=== PATIENT | male | born 1945 | race Caucasian/White ===

== ENCOUNTER 2017-02-17 20:02 | Inpatient (IN) | payer MEDICARE ==
[2017-02-18] MEDS ORDERED: HEPARIN SODIUM,PORCINE 5,000 UNIT/ML 1 ML VIAL IV PRN (01:43)
[2017-02-18] MEDS ORDERED: IPRATROPIUM-ALBUTEROL 3 ML NEB INHALATION PRN (01:49)
[2017-02-18] MEDS: HEPARIN SODIUM,PORCINE/D5W PMX 25,000 UNIT in DEXTROSE/WATER 1 500ML.BAG IV SCH (02:47)
[2017-02-18] MEDS: methylPREDNISolone SOD SUCCI 40 MG/ML 1 ML VIAL IV SCH ×2 (02:48→09:57)
[2017-02-18] MEDS: PANTOPRAZOLE 40 MG/10 ML VIAL IVP SCH ×2 (02:48→09:55)
[2017-02-18 05:08] VITALS: BMI 23.6
[2017-02-18 05:40] LABS: Glucose,Whole Blood 192 mg/dL (75-99)
[2017-02-18 06:26] LABS: Basophils % (A) 0 %; CH 35.2; CHCM 34.2; Eosinophils # (A) 0.1 k/uL (0-0.7); Eosinophils % (A) 1 %; HCT 38.1 % (39.0-53.0); HGB 13.3 gm/dL (13.0-17.5); Luc # (Auto) 0.11; Luc % (Auto) 2; Lymphocytes # (A) 0.5 k/uL (1.0-4.8); Lymphocytes % (A) 10 %; MCH 36.1 pg (25.0-35.0); MCHC 34.9 g/dL (31.0-37.0); MCV 103.2 fL (80.0-100.0); Macrocytosis Slight; Mean Platelet Volume 7.1; Monocytes # (A) 0.1 k/uL (0-1.0); Monocytes % (A) 2 %; Neutrophils # (A) 4.1 k/uL (1.3-7.7); Neutrophils % (A) 84 %; RBC 3.69 m/uL (4.30-5.90); WBC 4.9 k/uL (3.8-10.6); WBC (Perox) 5.29
[2017-02-18 06:43] LABS: Anion Gap 11 mmol/L; Blood Urea Nitrogen 20 mg/dL (9-20); Calcium 8.6 mg/dL (8.4-10.2); Carbon Dioxide 24 mmol/L (22-30); Chloride 100 mmol/L (98-107); Glucose 188 mg/dL (74-99); Magnesium 2.1 mg/dL (1.6-2.3); Non-African American GFR(MDRD) >60 (>60 ml/min/1.73 sqM); Phosphorous 2.8 mg/dL (2.5-4.5); Potassium 4.5 mmol/L (3.5-5.1); Sodium 135 mmol/L (137-145)
[2017-02-18] MEDS: INSULIN LISPRO (humaLOG) 300 UNIT/3 ML VIAL SQ SCH ×5 (06:58→21:54)
[2017-02-18] MEDS: metFORMIN 500 MG TAB PO SCH (06:58)
[2017-02-18] MEDS: DONEPEZIL 10 MG TAB PO SCH ×2 (06:58→21:52)
[2017-02-18] MEDS: FERROUS SULFATE 325 MG TAB PO SCH ×2 (06:58→17:37)
--- NOTE | 2017-02-18 07:47 | XR ---
EXAMINATION TYPE: XR chest 2V DATE OF EXAM: 02/18/2017 COMPARISON: Prior chest x-ray 07/09/2016 HISTORY: Pleural effusion TECHNIQUE: Frontal and lateral views of the chest are obtained. FINDINGS: Similar findings to prior exam. Aortic stent graft is in place. Patient is post median moe rnotomy and the heart remains enlarged. There is blunting of the costophrenic angles. No evident pneu mothorax. Patient is rotated. There are overlying cardiac leads. IMPRESSION: Bilateral pleural effusions and associated atelectasis, cardiomegaly. Postprocedural sahil nges.
[2017-02-18] MEDS: IPRATROPIUM-ALBUTEROL 3 ML NEB INHALATION SCH ×4 (08:25→19:02)
[2017-02-18] MEDS: SYMBICORT 160-4.5 MCG INHALER INHALATION SCH ×2 (08:26→19:02)
[2017-02-18 08:50] LABS: Hemoglobin A1C 7.3 % (4.2-6.1)
[2017-02-18] MEDS ORDERED: AZITHROMYCIN 500 MG in SODIUM CHLORIDE 0.9% 250 ML IVPB SCH (09:00)
[2017-02-18] MEDS: PRIMIDONE 50 MG TAB PO SCH ×2 (09:56→17:39)
[2017-02-18] MEDS: ESCITALOPRAM 20 MG TAB PO SCH (09:56)
[2017-02-18] MEDS: PROPRANOLOL 20 MG TAB PO SCH ×2 (09:56→21:54)
[2017-02-18] MEDS: SPIRONOLACTONE 25 MG TAB PO SCH (09:56)
[2017-02-18] MEDS: FUROSEMIDE 10 MG/ML 4 ML VIAL IV SCH ×2 (09:56→21:52)
[2017-02-18] MEDS: CARBIDOPA-LEVODOPA 25-100 MG 1 EACH TAB PO SCH ×3 (09:56→21:55)
[2017-02-18] MEDS: DILTIAZEM CD 240 MG CAP.ER.24H PO SCH (09:56)
[2017-02-18] MEDS: DOCUSATE 100 MG CAP PO SCH (09:57)
--- NOTE | 2017-02-18 11:05 | ECHOF ---
Referral Reason:LV function MEASUREMENTS -------- HEIGHT: 152.4 cm WEIGHT: 74.4 kg BP: 132/70 IVSd: 1.3 cm (0.6 - 1.1) LVIDd: 5.0 cm (3.9 - 5.3) LVPWd: 1.2 cm (0.6 - 1.1) IVSs: 1.6 cm LVIDs: 3.6 cm LVPWs: 1.6 cm LA Diam: 3.8 cm (2.7 - 3.8) LAESV Index (A-L): 64.13 ml/m Ao Diam: 5.7 cm (2.0 - 3.7) AV Cusp: 1.8 cm (1.5 - 2.6) LA Diam: 2.6 cm (2.7 - 3.8) MV EXCURSION: 19.436 mm (> 18.000) MV EF SLOPE: 130 mm/s (70 - 150) EPSS: 1.2 cm MV E Jelani: 0.68 m/s MV DecT: 184 ms MV A Jelani: 0.27 m/s MV E/A Ratio: 2.56 RAP: 5.00 mmHg RVSP: 22.89 mmHg FINDINGS -------- Undetermined rhythm. This was a technically adequate study. There is mild concentric left ventricular hypertrophy. Overall left ventricular systolic function is low-normal with, an EF between 50 - 55 %. The right ventricle is normal in size. LA is severely dilated >40 ml/m2 The right atrial size is normal. There is mild aortic valve sclerosis. There is [id number] aortic regurgitation. Mild mitral annular calcification present. Mild mitral regurgitation is present. Mild tricuspid regurgitation present. There is no evidence of pulmonary hypertension. The right ventricular systolic pressure, as measured by Doppler, is 22.89mmHg. There is no pulmonic regurgitation present. Aortic Root is Moderately dilated and measures 5.7cm There is no pericardial effusion. CONCLUSIONS -------- 1. There is mild concentric left ventricular hypertrophy. 2. There is no pulmonic regurgitation present. 3. Aortic Root is Moderately dilated and measures 5.7cm 4. There is no pericardial effusion. 5. Overall left ventricular systolic function is low-normal with, an EF between 50 - 55 %. 6. LA is severely dilated >40 ml/m2 7. There is mild aortic valve sclerosis. 8. Mild mitral annular calcification present. 9. Mild mitral regurgitation is present. 10. Mild tricuspid regurgitation present. 11. There is no evidence of pulmonary hypertension. 12. The right ventricular systolic pressure, as measured by Doppler, is 22.89mmHg. BEHAVIORAL GENETICIST: Elizabeth Crenshaw RDCS
[2017-02-18] MEDS: MULTIVITAMINS, THERA 1 EACH TAB PO SCH (11:32)
[2017-02-18 11:48] LABS: Glucose,Whole Blood 325 mg/dL (75-99)
--- NOTE | 2017-02-18 12:54 | P.CRDCN ---
History of Present Illness Consult date: 02/18/17 Requesting physician: Lexus Jones Reason for Consult (text): Persistent cough and mental status changes Chief complaint: Persistent cough and mental status changes History of present illness: This is a 71-year-old gentleman who follows with Dr. Guzman in the office. He has a known history of coronary artery disease with prior bypass surgery, history of aascending aortic repair, chronic persistent atrial fibrillation, rheumatoid arthritis, diabetes, hypertension, hyperlipidemia, Parkinson's and mild dementia. Presented to [facility] with symptoms of persistent cough, productive, he also states that he's been getting fever and chills at home over the past one week or so. According to the , he's also been having worsening in mental status changes. Patient was seen at [facility] was initiated on IV antibiotics, CAT scan of the brain was also performed which did not reveal any evidence of acute cortical CVA. Because of the atrial fibrillation and worsening mental status changes the patient was transferred here to [facility]. Chest x-ray performed at [place] revealed small bilateral pleural effusions right basilar atelectasis. CTA of the chest performed at [place] revealed a loculated fluid collection in the right lung base with overlying airspace disease suggesting pneumonia. Patient was initiated on IV antibiotics and transferred here. White blood cell count 5.1, hemoglobin 13.4, platelet count 105, BNP 2300, potassium 4.2, BUN 21, creatinine 1.2. Troponin 0.017, CRP 4.5 INR 1.7. Patient is currently on IV heparin. Continues to have productive cough. Blood pressure 122/90, heart rate in the 70s to 90s. Hemoglobin 13.3, platelet count 102, potassium 4.5, BUN 20, creatinine 0.9. Magnesium level is 2.1. Chest x-ray performed on arrival here reveals bilateral pleural effusions. Echocardiogram with Doppler study was performed which reveals an ejection fraction of 50-55%. Past Medical History Past Medical History: Atrial Fibrillation, Cancer, Heart Failure, Dementia, Diabetes Mellitus, GI Bleed, Hyperlipidemia, Hypertension, Memory Impairment, Neurologic Disorder, Prostate Disorder, Renal Disease, Rheumatoid Arthritis (RA) Additional Past Medical History / Comment(s): PARKINSON'S. HX SKIN CA. KIDNEY STONES, ANEMIA, History of Any Multi-Drug Resistant Organisms: None Reported Past Surgical History: Appendectomy, Cholecystectomy, Coronary Bypass/CABG, Hernia Repair, Orthopedic Surgery Additional Past Surgical History / Comment(s): KIDNEY STONE REMOVAL. AORTIC ANEURYSM REPAIRED,AORTA- STENT PLACED. TRIPLE CABG, BILATERAL CATARACT. LEFT KNEE arthroscopy, blepharoplasty both eyes Past Anesthesia/Blood Transfusion Reactions: No Reported Reaction Past Psychological History: Anxiety, Depression Smoking Status: Unknown if ever smoked Past Alcohol Use History: None Reported Past Drug Use History: None Reported - Past Family History Mother Family Medical History: No Reported History Father Family Medical History: No Reported History Medications and Allergies Home Medications Medication Instructions Recorded Confirmed Type Calcium Citrate/Vitamin D3 1 tab PO BID 03/29/14 02/18/17 History [Calcium Citrate - Vit D3 Tab] Magnesium Gluconate [Magonate] 500 mg PO DAILY 03/29/14 02/18/17 History Multivitamin [Men's Multi-Vitamin] 1 tab PO DAILY@1200 03/29/14 02/18/17 History Simvastatin [Zocor] 40 mg PO HS 04/27/14 02/18/17 History Spironolactone 12.5 mg PO DAILY 04/10/15 02/18/17 History Escitalopram [Lexapro] 20 mg PO DAILY 05/07/15 02/18/17 History Aspirin EC [Ecotrin Low Dose] 81 mg PO HS 06/01/16 02/18/17 History Donepezil [Aricept] 10 mg PO HS 06/01/16 02/18/17 History Furosemide [Lasix] 20 mg PO DAILY 06/01/16 02/18/17 History Primidone [Mysoline] 50 mg PO TID 06/01/16 02/18/17 History predniSONE 10 mg PO DAILY 06/01/16 02/18/17 History traZODone HCL 50 mg PO HS 06/01/16 02/18/17 History Albuterol Sulfate [Ventolin Hfa] 1 puff INHALATION RT-TID PRN 02/18/17 02/18/17 History Carbidopa-Levodopa 25-100 mg 1 tab PO TID 02/18/17 02/18/17 History [Sinemet 25-100] Diltiazem HCl [Diltiazem ER] 240 mg PO DAILY 02/18/17 02/18/17 History Docusate Extra Strength 250 mg PO HS 02/18/17 02/18/17 History Ferrous Sulfate [Feosol] 325 mg PO BID 02/18/17 02/18/17 History Propranolol [Inderal] 20 mg PO BID 02/18/17 02/18/17 History Thiamine [Vitamin B-1] 250 mg PO DAILY@1200 02/18/17 02/18/17 History metFORMIN HCL [Glucophage] 500 mg PO DAILY 02/18/17 02/18/17 History Allergies Allergy/AdvReac Type Severity Reaction Status Date / Time nitroglycerin AdvReac EXTREME Verified 07/09/16 09:43 DROP IN BP Physical Exam Vitals: Vital Signs Temp Pulse Pulse Resp BP Pulse Ox 02/18/17 12:11 96 02/18/17 12:00 97.0 F L 84 18 123/76 95 02/18/17 11:59 92 02/18/17 08:40 96 02/18/17 08:25 96 02/18/17 08:00 97.0 F L 96 18 122/92 96 02/18/17 04:00 98.4 F 74 18 132/70 91 L 02/18/17 01:35 98.0 F 72 18 118/67 95 Intake and Output 02/17/17 02/18/17 02/18/17 22:59 06:59 14:59 Intake Total 71.6 164.382 Output Total 225 Balance -153.4 164.382 Intake: IV 71.6 Heparin Sodium,Porcine/ 71.6 D5w Pmx 25,000 unit In Dextrose/Water 1 500ml. bag @ 12 UNITS/KG/HR 17.9 mls/hr IV .Q24H [facility] Rx#: [id number] Intake, IV Titration 164.382 Amount Heparin Sodium,Porcine/ 164.382 D5w Pmx 25,000 unit In Dextrose/Water 1 500ml. bag @ 12 UNITS/KG/HR 17.9 mls/hr IV .Q24H [facility] Rx#: [id number] Oral 0 Output: Urine 225 Other: Voiding Method Urinal Urinal Diaper Diaper # Voids 1 Weight 74.7 kg 74.7 kg Patient Weight 02/19/17 06:59 Weight 74.7 kg PHYSICAL EXAMINATION: HEENT: Head is atraumatic, normocephalic. Pupils equal, round. Neck is supple. There is no elevated jugular venous pressure. HEART EXAMINATION: S1 and S2 irregularly irregular systolic murmur is heard. CHEST EXAMINATION: Reveal scattered coarse rhonchi throughout. ABDOMEN: Soft, nontender. Bowel sounds are heard. No organomegaly noted. EXTREMITIES: 1+ peripheral pulses with no evidence of peripheral edema and no calf tenderness noted. NEUROLOGIC patient is awake, alert and oriented -3. . Results 02/18/17 05:55 02/18/17 05:55 Coagulation 02/18/17 Range/Units 05:55 APTT 38.3 H (22.0-30.0) sec CBC 02/18/17 Range/Units 05:55 WBC 4.9 (3.8-10.6) k/uL RBC 3.69 L (4.30-5.90) m/uL Hgb 13.3 (13.0-17.5) gm/dL Hct 38.1 L (39.0-53.0) % Plt Count 102 L (150-450) k/uL Comprehensive Metabolic Panel 02/18/17 Range/Units 05:55 Sodium 135 L (137-145) mmol/L Potassium 4.5 (3.5-5.1) mmol/L Chloride 100 (98-107) mmol/L Carbon Dioxide 24 (22-30) mmol/L BUN 20 (9-20) mg/dL Creatinine 0.90 (0.66-1.25) mg/dL Glucose 188 H (74-99) mg/dL Calcium 8.6 (8.4-10.2) mg/dL Current Medications Generic Name Dose Route Start Last Admin Trade Name Freq PRN Reason Stop Dose Admin Albuterol/Ipratropium 3 ml 02/18/17 08:00 02/18/17 11:57 Duoneb 0.5 Mg-3 Mg/3 Ml Soln INHALATION 3 ml RT-QID [facility] Administration Albuterol/Ipratropium 3 ml 02/18/17 01:49 Duoneb 0.5 Mg-3 Mg/3 Ml Soln INHALATION RT-Q2H PRN Shortness Of Breath Or Wheezing Atorvastatin Calcium 40 mg 02/18/17 21:00 Lipitor PO HS MELL Budesonide/Formoterol Fumarate 2 puff 02/18/17 08:00 02/18/17 08:26 Symbicort 160-4.5 Mcg Inhaler INHALATION 2 puff RT-BID MELL Administration Carbidopa/Levodopa 1 each 02/18/17 09:00 02/18/17 09:56 Sinemet 25-100 PO 1 each TID MELL Administration Diltiazem HCl 240 mg 02/18/17 09:00 02/18/17 09:56 Cardizem Cd PO 240 mg DAILY MELL Administration Docusate Sodium 100 mg 02/18/17 09:00 02/18/17 09:57 Colace PO 100 mg DAILY MELL Administration Donepezil HCl 10 mg 02/18/17 02:16 02/18/17 06:58 Aricept PO 10 mg HS MELL Administration Escitalopram Oxalate 20 mg 02/18/17 09:00 02/18/17 09:56 Lexapro PO 20 mg DAILY MELL Administration Ferrous Sulfate 325 mg 02/18/17 07:30 02/18/17 06:58 Feosol PO 325 mg BID-W/MEALS MELL Administration Furosemide 40 mg 02/18/17 09:00 02/18/17 09:56 Lasix IV 40 mg Q12HR ME[facility] Administration Heparin Sodium (Porcine) 0 unit 02/18/17 01:43 Heparin IV PER PROTOCOL PRN Low PTT Protocol Azithromycin 500 mg/ Sodium 250 mls @ 125 mls/hr 02/18/17 09:00 02/18/17 11: 32 Chloride IVPB 125 mls/hr DAILY ME[facility] Administration Ceftriaxone Sodium 1,000 mg/ 50 mls @ 100 mls/hr 02/18/17 08:00 02/18/17 09: 54 Sodium Chloride IVPB 100 mls/hr Q24H [facility] Administration Heparin Sodium/Dextrose 25,000 500 mls @ 17.9 mls/hr 02/18/17 01:45 02/18/17 11:58 unit/ IV Solution IV 15 units/kg/hr .Q24H [facility] 22.38 mls/hr Protocol Titration 12 UNITS/KG/HR Insulin Human Lispro 0 unit 02/18/17 07:30 02/18/17 06:58 Humalog SQ 5 unit ACHS ME[facility] Administration Protocol Melatonin 5 mg 02/18/17 21:00 Melatonin PO HS MELL Metformin HCl 500 mg 02/18/17 07:30 02/18/17 06:58 Glucophage PO 500 mg W/BRKFST [facility] Administration Methylprednisolone Sodium Succinate 40 mg 02/18/17 01:45 02/18/17 09:57 Solu-Medrol IV 40 mg Q8HR [facility] Administration Multivitamins 1 each 02/18/17 12:00 02/18/17 11:32 Theragran PO 1 each DAILY@1200 [facility] Administration Pantoprazole Sodium 40 mg 02/18/17 01:45 02/18/17 09:55 Protonix IVP 40 mg DAILY [facility] Administration Primidone 50 mg 02/18/17 09:00 02/18/17 09:56 Mysoline PO 50 mg TID MELL Administration Propranolol HCl 20 mg 02/18/17 09:00 02/18/17 09:56 Inderal PO 20 mg BID MELL Administration Spironolactone 12.5 mg 02/18/17 09:00 02/18/17 09:56 Aldactone PO 12.5 mg DAILY ME[facility] Administration Trazodone HCl 50 mg 02/18/17 21:00 Desyrel PO HS MELL Intake and Output 02/17/17 02/18/17 02/18/17 22:59 06:59 14:59 Intake Total 71.6 164.382 Output Total 225 Balance -153.4 164.382 Intake: IV 71.6 Heparin Sodium,Porcine/ 71.6 D5w Pmx 25,000 unit In Dextrose/Water 1 500ml. bag @ 12 UNITS/KG/HR 17.9 mls/hr IV .Q24H [facility] Rx#: [id number] Intake, IV Titration 164.382 Amount Heparin Sodium,Porcine/ 164.382 D5w Pmx 25,000 unit In Dextrose/Water 1 500ml. bag @ 12 UNITS/KG/HR 17.9 mls/hr IV .Q24H [facility] Rx#: [id number] Oral 0 Output: Urine 225 Other: Voiding Method Urinal Urinal Diaper Diaper # Voids 1 Weight 74.7 kg 74.7 kg Patient Weight 02/19/17 06:59 Weight 74.7 kg 02/18/17 05:55 02/18/17 05:55 EKG Interpretations (text) EKG shows atrial fibrillation with a controlled ventricular response. Assessment and Plan Plan: Assessment and plan #1 symptoms of productive cough with associated fever, CT of the chest revealed possible pneumonia. Patient is currently on IV antibiotics. #2 mental status changes in a patient with Parkinson's and also mild dementia. CT of the brain did not reveal any acute events. #3 chronic persistent atrial fibrillation, on Coumadin, INR subtherapeutic patient is on heparin. #4 known history of coronary artery disease with prior bypass surgery #5 prior aortic aneurysm with stent placement, #6 Parkinson's #7 dementia #8 hypertension #9 hyperlipidemia Plan Obtain echocardiogram with Doppler study. Continue IV antibiotics, continue heparin until his INR is therapeutic. Continue IV Lasix for 24 hours. Further recommendations to follow. DNP note has been reviewed, I agree with a documented findings and plan of care. Patient was seen and examined.
--- NOTE | 2017-02-18 14:46 | P.CNPUL ---
History of Present Illness Consult date: 02/18/17 Reason for consult: dyspnea History of present illness: 71-year-old male patient, a multitude of medical problems including coronary artery disease, descending thoracic aortic endovascular stent insertion for an aneurysm, CHF, chronic A. fib, Parkinson's disease, rheumatoid arthritis and previous history of a fall with a chronic loculated fluid collection in the right lung base that has been investigated in the past for a bronchoscopy and a fine-needle aspirate and there was no indication for any underlying malignancy. The patient came in yesterday to [facility] because of worsening shortness of breath, increased coughing, increased shortness of breath, increased temperature and confusion. The patient had a CAT scan of the chest was done in [facility] that showed a loculated 13 x 6.9 cm fluid collection in the right lung base with overlying airspace disease which is essentially suggestive an underlying pneumonia. Additional airspace disease was seen in the right upper lobe. No left-sided pleural effusion. No pneumothorax. No filling defects within the pulmonary artery. The patient has moderate cardiomegaly. The patient is post bypass surgery and an aortic aneurysm ectasia with stent was seen and the findings were essentially stable. The patient has Parkinson's disease. At times is having some difficulty swallowing. No clear indication or history to suggest aspiration. He is congested in his bronchospastic and wheezy. He is a lifetime nonsmoker. No bronchial asthma. Most of emphysema. No home O2 therapy. No travel history. Review of Systems All systems: negative Constitutional: Denies chills, Denies fever Eyes: denies blurred vision, denies pain Ears, nose, mouth and throat: Denies headache, Denies sore throat Cardiovascular: Reports decreased exercise tolerance, Denies shortness of breath Respiratory: Reports cough with sputum, Reports dyspnea, Reports wheezing, Denies cough Gastrointestinal: Denies abdominal pain, Denies diarrhea, Denies nausea, Denies vomiting Musculoskeletal: Denies myalgias Integumentary: Denies pruritus, Denies rash Neurological: Reports balance difficulties, Reports memory loss, Reports motor disturbance, Reports numbness, Reports spasticity, Reports weakness Psychiatric: Denies anxiety, Denies depression Endocrine: Denies fatigue, Denies weight change Past Medical History Past Medical History: Atrial Fibrillation, Cancer, Heart Failure, Dementia, Diabetes Mellitus, GI Bleed, Hyperlipidemia, Hypertension, Memory Impairment, Neurologic Disorder, Prostate Disorder, Renal Disease, Rheumatoid Arthritis (RA) Additional Past Medical History / Comment(s): Coronary artery disease, previous coronary artery bypass surgery, thoracic aortic aneurysm status post endovascular stent grafting, chronic atrial fibrillation, skin cancer, congestion heart failure, dementia, Parkinson's disease, diabetes mellitus, previous history of GI bleeds, hyperlipidemia, hypertension, prostate cancer, rheumatoid arthritis, 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, nephrolithiasis, a chronic loculated right basilar fluid collection present since June 2016 History of Any Multi-Drug Resistant Organisms: None Reported Past Surgical History: Appendectomy, Cholecystectomy, Coronary Bypass/CABG, Hernia Repair, Orthopedic Surgery Additional Past Surgical History / Comment(s): Left knee surgery, hernia repair involving inguinal hernias, appendectomy, removal of kidney stones, coronary artery bypass surgeries was done 2009, cholecystectomy, cataract surgery in 2014 , eyelid surgery 2015, carotid to subclavian artery bypass surgery, placement of a descending thoracic aortic aneurysm endovascular stent, blepharoplasty Past Anesthesia/Blood Transfusion Reactions: No Reported Reaction Past Psychological History: Anxiety, Depression Smoking Status: Unknown if ever smoked Past Alcohol Use History: None Reported Past Drug Use History: None Reported - Past Family History Mother Family Medical History: No Reported History Father Family Medical History: No Reported History Medications and Allergies Home Medications Medication Instructions Recorded Confirmed Type Calcium Citrate/Vitamin D3 1 tab PO BID 03/29/14 02/18/17 History [Calcium Citrate - Vit D3 Tab] Magnesium Gluconate [Magonate] 500 mg PO DAILY 03/29/14 02/18/17 History Multivitamin [Men's Multi-Vitamin] 1 tab PO DAILY@1200 03/29/14 02/18/17 History Simvastatin [Zocor] 40 mg PO HS 04/27/14 02/18/17 History Spironolactone 12.5 mg PO DAILY 04/10/15 02/18/17 History Escitalopram [Lexapro] 20 mg PO DAILY 05/07/15 02/18/17 History Aspirin EC [Ecotrin Low Dose] 81 mg PO HS 06/01/16 02/18/17 History Donepezil [Aricept] 10 mg PO HS 06/01/16 02/18/17 History Furosemide [Lasix] 20 mg PO DAILY 06/01/16 02/18/17 History Primidone [Mysoline] 50 mg PO TID 06/01/16 02/18/17 History predniSONE 10 mg PO DAILY 06/01/16 02/18/17 History traZODone HCL 50 mg PO HS 06/01/16 02/18/17 History Albuterol Sulfate [Ventolin Hfa] 1 puff INHALATION RT-TID PRN 02/18/17 02/18/17 History Carbidopa-Levodopa 25-100 mg 1 tab PO TID 02/18/17 02/18/17 History [Sinemet 25-100] Diltiazem HCl [Diltiazem ER] 240 mg PO DAILY 02/18/17 02/18/17 History Docusate Extra Strength 250 mg PO HS 02/18/17 02/18/17 History Ferrous Sulfate [Feosol] 325 mg PO BID 02/18/17 02/18/17 History Propranolol [Inderal] 20 mg PO BID 02/18/17 02/18/17 History Thiamine [Vitamin B-1] 250 mg PO DAILY@1200 02/18/17 02/18/17 History metFORMIN HCL [Glucophage] 500 mg PO DAILY 02/18/17 02/18/17 History Allergies Allergy/AdvReac Type Severity Reaction Status Date / Time nitroglycerin AdvReac EXTREME Verified 07/09/16 09:43 DROP IN BP Physical Exam Vitals: Vital Signs Temp Pulse Pulse Resp BP Pulse Ox 02/18/17 12:11 96 02/18/17 12:00 97.0 F L 84 18 123/76 95 02/18/17 11:59 92 02/18/17 08:40 96 02/18/17 08:25 96 02/18/17 08:00 97.0 F L 96 18 122/92 96 02/18/17 04:00 98.4 F 74 18 132/70 91 L 02/18/17 01:35 98.0 F 72 18 118/67 95 Intake and Output 02/17/17 02/18/17 02/18/17 22:59 06:59 14:59 Intake Total 71.6 224.382 Output Total 225 Balance -153.4 224.382 Intake: IV 71.6 Heparin Sodium,Porcine/ 71.6 D5w Pmx 25,000 unit In Dextrose/Water 1 500ml. bag @ 12 UNITS/KG/HR 17.9 mls/hr IV .Q24H [facility] Rx#: [id number] Intake, IV Titration 164.382 Amount Heparin Sodium,Porcine/ 164.382 D5w Pmx 25,000 unit In Dextrose/Water 1 500ml. bag @ 12 UNITS/KG/HR 17.9 mls/hr IV .Q24H [facility] Rx#: [id number] Oral 60 Output: Urine 225 Other: Voiding Method Urinal Urinal Diaper Diaper # Voids 1 Weight 74.7 kg 74.7 kg Patient Weight 02/19/17 06:59 Weight 74.7 kg Head exam was generally normal. There was no scleral icterus or corneal arcus. Mucous membranes were moist. The patient has poker facies typical of an underlying Parkinson disease. Neck was supple and without jugular venous distension, thyromegaly, or carotid bruits. Carotids were easily palpable bilaterally. There was no adenopathy. Lung sounds are diminished bilaterally along with presence of diffuse expiratory wheezes throughout the lung plascencia bilaterally. Heart sounds are irregular, possible sinus stool, no cervical murmurs appreciated. Sternum stable clean and intact.Abdominal exam revealed normal bowel sounds. The abdomen was soft, non-tender, and without masses, organomegaly, or appreciable enlargement of the abdominal aorta.Examination of the extremities revealed easily palpable radial, femoral and pedal pulses. There was no cyanosis, clubbing or edema. Neurologically the patient is awake and alert. He has some resting tremors and motor rigidity. Results - Laboratory Findings CBC and BMP: 02/18/17 05:55 02/18/17 05:55 Abnormal lab findings: Abnormal Labs 02/18/17 02/18/17 02/18/17 05:38 05:55 05:55 RBC Hct MCV MCH Plt Count Lymphocytes # APTT Sodium 135 L Glucose 188 H POC Glucose (mg/dL) 192 H Hemoglobin A1c 7.3 H 02/18/17 02/18/17 02/18/17 05:55 05:55 11:47 RBC 3.69 L Hct 38.1 L MCV 103.2 H MCH 36.1 H Plt Count 102 L Lymphocytes # 0.5 L APTT 38.3 H Sodium Glucose POC Glucose (mg/dL) 325 H Hemoglobin A1c - Diagnostic Findings Chest x-ray: image reviewed CT scan - chest: image reviewed Assessment and Plan Plan: Assessment 1 acute shortness of breath associated with bronchospasm wheezing. CT of the chest was reviewed. There is a loculated chronic 13 x 6.9 cm fluid collection the right lung base which remains unchanged. Nevertheless there is a in the right lung base and the right upper lobe consistent with multifocal pneumonia. Aspiration cannot be ruled out in the setting of Parkinson's disease and possible dysphagia. The patient will be covered with broad-spectrum antibiotics. The patient recovered with a combination of bronchodilators and steroids. 2 coronary artery disease with previous bypass surgery 2009 3 congestion heart failure 4 Parkinson's disease 5 dementia 6 skin cancer in the form of basal cell and squamous cell 7 rheumatoid arthritis 8 diabetes mellitus type 2 9 hypertension 10 hyperlipidemia 11 chronic atrial fibrillation 13 nephrolithiasis 14 previous bronchoscopy and fine-needle aspirate of the right lower lobe pulmonary opacity both yielding negative for malignancy Plan Swallow evaluation. Cover the patient IV Zosyn. DuoNeb the dressings around- the-clock. IV Solu-Medrol. Cardiology evaluated the cardiac status and a baseline echocardiogram. Continue outpatient medications. We'll continue to follow make further recommendations based on progress.
[2017-02-18 16:44] LABS: Glucose,Whole Blood 380 mg/dL (75-99)
[2017-02-18] MEDS ORDERED: INSULIN REGULAR BOLUS (FROM DRIP BAG) IV ONE (17:27)
[2017-02-18] MEDS: PIPERACILLIN-TAZOBACTAM 3.375 GM in DEXTROSE/WATER 1 50ML.BAG IVPB SCH (17:37)
[2017-02-18] MEDS: methylPREDNISolone SOD SUCCI 125 MG/2 ML VIAL IV SCH ×2 (17:46→21:53)
[2017-02-18] MEDS: INSULIN REGULAR 100 UNIT in SODIUM CHLORIDE 0.9% 100 ML IV SCH (18:45)
[2017-02-18 19:41] LABS: Glucose,Whole Blood 357 mg/dL (75-99)
[2017-02-18 21:51] LABS: Glucose,Whole Blood 75 mg/dL (75-99)
[2017-02-18] MEDS: ATORVASTATIN 40 MG TAB PO SCH (21:52)
[2017-02-18] MEDS: MELATONIN 5 MG TABLET PO SCH (21:53)
[2017-02-18] MEDS: traZODone HCL 50 MG TAB PO SCH (21:55)
[2017-02-18 22:26] LABS: Glucose,Whole Blood 71 mg/dL (75-99)
[2017-02-18 23:00] LABS: Glucose,Whole Blood 69 mg/dL (75-99)
[2017-02-18 23:29] LABS: Glucose,Whole Blood 210 mg/dL (75-99)
[2017-02-19] MEDS: PIPERACILLIN-TAZOBACTAM 3.375 GM in DEXTROSE/WATER 1 50ML.BAG IVPB SCH ×3 (00:04→15:31)
[2017-02-19] MEDS: PRIMIDONE 50 MG TAB PO SCH ×4 (00:05→21:44)
[2017-02-19 00:58] LABS: Glucose,Whole Blood 234 mg/dL (75-99)
[2017-02-19 01:25] LABS: Glucose,Whole Blood 233 mg/dL (75-99)
[2017-02-19 02:39] LABS: INR 1.5 (<1.1); Prothrombin Time 14.9 sec (9.0-12.0)
[2017-02-19 02:45] LABS: CH 36.2; CHCM 34.8; HCT 38.5 % (39.0-53.0); HDW 2.65; MCH 35.3 pg (25.0-35.0); MCHC 33.7 g/dL (31.0-37.0); MCV 104.7 fL (80.0-100.0); Macrocytosis Moderate; Mean Platelet Volume 7.5; RBC 3.68 m/uL (4.30-5.90); RDW 14.4 % (11.5-15.5); WBC 6.6 k/uL (3.8-10.6)
[2017-02-19 03:01] LABS: ALT 26 U/L (21-72); AST 31 U/L (17-59); Alkaline Phosphatase 53 U/L (38-126); Anion Gap 12 mmol/L; Blood Urea Nitrogen 29 mg/dL (9-20); Calcium 8.8 mg/dL (8.4-10.2); Carbon Dioxide 23 mmol/L (22-30); Chloride 100 mmol/L (98-107); Glucose 206 mg/dL (74-99); Non-African American GFR(MDRD) >60 (>60 ml/min/1.73 sqM); Potassium 3.6 mmol/L (3.5-5.1); Sodium 135 mmol/L (137-145); Total Bilirubin 0.7 mg/dL (0.2-1.3); Total Protein 6.2 g/dL (6.3-8.2)
[2017-02-19] MEDS: methylPREDNISolone SOD SUCCI 125 MG/2 ML VIAL IV SCH ×2 (03:26→08:57)
[2017-02-19] MEDS: HEPARIN SODIUM,PORCINE/D5W PMX 25,000 UNIT in DEXTROSE/WATER 1 500ML.BAG IV SCH ×2 (03:27→20:49)
[2017-02-19 03:40] LABS: Glucose,Whole Blood 162 mg/dL (75-99)
[2017-02-19 05:16] LABS: Glucose,Whole Blood 172 mg/dL (75-99)
[2017-02-19 05:56] LABS: Glucose,Whole Blood 183 mg/dL (75-99)
[2017-02-19] MEDS: IPRATROPIUM-ALBUTEROL 3 ML NEB INHALATION SCH ×5 (06:57→19:43)
[2017-02-19] MEDS: SYMBICORT 160-4.5 MCG INHALER INHALATION SCH ×2 (06:58→19:43)
[2017-02-19] MEDS: FERROUS SULFATE 325 MG TAB PO SCH ×2 (07:04→17:24)
[2017-02-19] MEDS: INSULIN LISPRO (humaLOG) 300 UNIT/3 ML VIAL SQ SCH ×5 (07:05→17:24)
[2017-02-19 07:48] LABS: Glucose,Whole Blood 164 mg/dL (75-99)
[2017-02-19] MEDS: metFORMIN 500 MG TAB PO SCH (08:46)
[2017-02-19] MEDS: SPIRONOLACTONE 25 MG TAB PO SCH (08:55)
[2017-02-19] MEDS: DOCUSATE 100 MG CAP PO SCH (08:56)
[2017-02-19] MEDS: PANTOPRAZOLE 40 MG TABLET PO SCH (08:56)
[2017-02-19] MEDS: ESCITALOPRAM 20 MG TAB PO SCH (08:56)
[2017-02-19] MEDS: DILTIAZEM CD 240 MG CAP.ER.24H PO SCH (08:56)
[2017-02-19] MEDS: CARBIDOPA-LEVODOPA 25-100 MG 1 EACH TAB PO SCH ×3 (08:56→21:44)
[2017-02-19] MEDS: PROPRANOLOL 20 MG TAB PO SCH ×2 (08:56→21:43)
[2017-02-19] MEDS: FUROSEMIDE 10 MG/ML 4 ML VIAL IV SCH ×2 (08:57→21:43)
[2017-02-19] MEDS ORDERED: predniSONE 20 MG TAB PO SCH (09:00)
[2017-02-19 10:02] LABS: Glucose,Whole Blood 261 mg/dL (75-99)
[2017-02-19 11:56] LABS: Glucose,Whole Blood 146 mg/dL (75-99)
[2017-02-19] MEDS: MULTIVITAMINS, THERA 1 EACH TAB PO SCH (12:16)
[2017-02-19 14:36] LABS: Glucose,Whole Blood 256 mg/dL (75-99)
--- NOTE | 2017-02-19 15:25 | P.PN ---
Subjective 71-year-old male patient, a multitude of medical problems including coronary artery disease, descending thoracic aortic endovascular stent insertion for an aneurysm, CHF, chronic A. fib, Parkinson's disease, rheumatoid arthritis and previous history of a fall with a chronic loculated fluid collection in the right lung base that has been investigated in the past for a bronchoscopy and a fine-needle aspirate and there was no indication for any underlying malignancy. The patient came in yesterday to [facility] because of worsening shortness of breath, increased coughing, increased shortness of breath, increased temperature and confusion. The patient had a CAT scan of the chest was done in [facility] that showed a loculated 13 x 6.9 cm fluid collection in the right lung base with overlying airspace disease which is essentially suggestive an underlying pneumonia. Additional airspace disease was seen in the right upper lobe. No left-sided pleural effusion. No pneumothorax. No filling defects within the pulmonary artery. The patient has moderate cardiomegaly. The patient is post bypass surgery and an aortic aneurysm ectasia with stent was seen and the findings were essentially stable. The patient has Parkinson's disease. At times is having some difficulty swallowing. No clear indication or history to suggest aspiration. He is congested in his bronchospastic and wheezy. He is a lifetime nonsmoker. No bronchial asthma. Most of emphysema. No home O2 therapy. No travel history. On 02/19/2017 I'm seeing this patient in follow-up. He is feeling much better. Less short of breath. His cough chest congestion wheezing is improved significantly. The patient is on IV Lasix 40 mg IV push every 12 hours. The patient is also on DuoNeb nebulized treatments and Symbicort as maintenance. He is covered with IV Zosyn. He is on prednisone burst taper and he was taken off the IV Solu-Medrol. is at the bedside. No fever. No chills. No change in mental status. Swallow evaluation still pending for now. Objective - Vital Signs Vital signs: Vital Signs Temp 97.4 F L 02/19/17 08:00 Pulse 72 02/19/17 13:50 Resp 18 02/19/17 12:00 BP 111/61 02/19/17 12:00 Pulse Ox 96 02/19/17 12:00 Intake & Output 02/18/17 02/19/17 02/19/17 18:59 06:59 18:59 Intake Total 584.382 401.142 262.944 Output Total 250 1250 200 Balance 334.382 -848.858 62.944 Weight 74.7 kg 74.3 kg 74.3 kg Intake: Intake, IV Titration 164.382 401.142 22.944 Amount Heparin Sodium,Porcine/ 164.382 335.618 D5w Pmx 25,000 unit In Dextrose/Water 1 500ml. bag @ 12 UNITS/KG/HR 17.9 mls/hr IV .Q24H [facility] Rx#: [id number] Insulin Regular 100 unit 65.524 22.944 In Sodium Chloride 0.9% 100 ml @ Titrate IV .Q0M MELL Rx#:[id number] Oral 420 240 Output: Urine 250 1250 200 Other: Voiding Method Urinal Urinal Urinal Diaper Diaper Diaper # Voids 1 1 # Bowel Movements 1 - Exam Head exam was generally normal. There was no scleral icterus or corneal arcus. Mucous membranes were moist. The patient has poker facies typical of an underlying Parkinson disease. Neck was supple and without jugular venous distension, thyromegaly, or carotid bruits. Carotids were easily palpable bilaterally. There was no adenopathy. Lung sounds are diminished bilaterally and the patient's overall bronchospasm wheezing is improved compared to yesterday. It acutely remains limited in the lung bases.. Heart sounds are irregular, possible sinus stool, no cervical murmurs appreciated. Sternum stable clean and intact.Abdominal exam revealed normal bowel sounds. The abdomen was soft, non-tender, and without masses, organomegaly, or appreciable enlargement of the abdominal aorta.Examination of the extremities revealed easily palpable radial, femoral and pedal pulses. There was no cyanosis, clubbing or edema. Neurologically the patient is awake and alert. He has some resting tremors and motor rigidity. - Labs CBC & Chem 7: 02/19/17 01:53 02/19/17 01:53 Labs: Abnormal Lab Results - Last 24 Hours (Table) 02/18/17 02/18/17 02/18/17 Range/Units 16:41 18:59 19:23 RBC (4.30-5.90) m/uL Hct (39.0-53.0) % MCV (80.0-100.0) fL MCH (25.0-35.0) pg Plt Count (150-450) k/uL PT (9.0-12.0) sec APTT 41.9 H (22.0-30.0) sec Sodium (137-145) mmol/L BUN (9-20) mg/dL Glucose (74-99) mg/dL POC Glucose (mg/dL) 380 H 357 H (75-99) mg/dL Total Protein (6.3-8.2) g/dL 02/18/17 02/18/17 02/18/17 Range/Units 22:13 22:41 23:15 RBC (4.30-5.90) m/uL Hct (39.0-53.0) % MCV (80.0-100.0) fL MCH (25.0-35.0) pg Plt Count (150-450) k/uL PT (9.0-12.0) sec APTT (22.0-30.0) sec Sodium (137-145) mmol/L BUN (9-20) mg/dL Glucose (74-99) mg/dL POC Glucose (mg/dL) 71 L 69 L 210 H (75-99) mg/dL Total Protein (6.3-8.2) g/dL 02/19/17 02/19/17 02/19/17 Range/Units 00:57 01:13 01:53 RBC 3.68 L (4.30-5.90) m/uL Hct 38.5 L (39.0-53.0) % MCV 104.7 H (80.0-100.0) fL MCH 35.3 H (25.0-35.0) pg Plt Count 137 L (150-450) k/uL PT (9.0-12.0) sec APTT (22.0-30.0) sec Sodium (137-145) mmol/L BUN (9-20) mg/dL Glucose (74-99) mg/dL POC Glucose (mg/dL) 234 H 233 H (75-99) mg/dL Total Protein (6.3-8.2) g/dL 02/19/17 02/19/17 02/19/17 Range/Units 01:53 01:53 03:38 RBC (4.30-5.90) m/uL Hct (39.0-53.0) % MCV (80.0-100.0) fL MCH (25.0-35.0) pg Plt Count (150-450) k/uL PT 14.9 H (9.0-12.0) sec APTT 46.0 H (22.0-30.0) sec Sodium 135 L (137-145) mmol/L BUN 29 H (9-20) mg/dL Glucose 206 H (74-99) mg/dL POC Glucose (mg/dL) 162 H (75-99) mg/dL Total Protein 6.2 L (6.3-8.2) g/dL 02/19/17 02/19/17 02/19/17 Range/Units 04:41 05:46 07:35 RBC (4.30-5.90) m/uL Hct (39.0-53.0) % MCV (80.0-100.0) fL MCH (25.0-35.0) pg Plt Count (150-450) k/uL PT (9.0-12.0) sec APTT (22.0-30.0) sec Sodium (137-145) mmol/L BUN (9-20) mg/dL Glucose (74-99) mg/dL POC Glucose (mg/dL) 172 H 183 H 164 H (75-99) mg/dL Total Protein (6.3-8.2) g/dL 02/19/17 02/19/17 02/19/17 Range/Units 08:13 10:01 11:55 RBC (4.30-5.90) m/uL Hct (39.0-53.0) % MCV (80.0-100.0) fL MCH (25.0-35.0) pg Plt Count (150-450) k/uL PT (9.0-12.0) sec APTT 63.8 H (22.0-30.0) sec Sodium (137-145) mmol/L BUN (9-20) mg/dL Glucose (74-99) mg/dL POC Glucose (mg/dL) 261 H 146 H (75-99) mg/dL Total Protein (6.3-8.2) g/dL 02/19/17 Range/Units 14:25 RBC (4.30-5.90) m/uL Hct (39.0-53.0) % MCV (80.0-100.0) fL MCH (25.0-35.0) pg Plt Count (150-450) k/uL PT (9.0-12.0) sec APTT (22.0-30.0) sec Sodium (137-145) mmol/L BUN (9-20) mg/dL Glucose (74-99) mg/dL POC Glucose (mg/dL) 256 H (75-99) mg/dL Total Protein (6.3-8.2) g/dL Assessment and Plan Plan: Assessment 1 acute shortness of breath associated with bronchospasm wheezing. CT of the chest was reviewed. There is a loculated chronic 13 x 6.9 cm fluid collection the right lung base which remains unchanged. Nevertheless there is a in the right lung base and the right upper lobe consistent with multifocal pneumonia. Aspiration cannot be ruled out in the setting of Parkinson's disease and possible dysphagia. The patient will be covered with broad-spectrum antibiotics. The patient recovered with a combination of bronchodilators and steroids. 2 coronary artery disease with previous bypass surgery 2009 3 congestion heart failure 4 Parkinson's disease 5 dementia 6 skin cancer in the form of basal cell and squamous cell 7 rheumatoid arthritis 8 diabetes mellitus type 2 9 hypertension 10 hyperlipidemia 11 chronic atrial fibrillation 13 nephrolithiasis 14 previous bronchoscopy and fine-needle aspirate of the right lower lobe pulmonary opacity both yielding negative for malignancy Plan Swallow evaluation is still pending. Meanwhile clinically the patient is improved significantly. Continued IV Zosyn. Stop the IV Solu Medrol and put the patient prednisone burst taper. Continue the anticoagulation nontender the patient's PT/INR is subtherapeutic. Meanwhile we will continue the patient IV heparin as bridging therapy until the patient's Coumadin level becomes therapeutic. Continued Lasix. We'll follow.
[2017-02-19] MEDS: INSULIN REGULAR 100 UNIT in SODIUM CHLORIDE 0.9% 100 ML IV SCH (15:32)
--- NOTE | 2017-02-19 16:21 | P.PN ---
Subjective This is a 71-year-old gentleman who follows with Dr. Heller in the office. He is a known history of CAD with prior bypass surgery, history of ascending aortic aneurysm repair, atrial fibrillation, rheumatoid arthritis, diabetes, hypertension hyperlipidemia. This ended here from [facility] with fever, chills and worsening mental status changes. Patient is being treated for pneumonia. INR subtherapeutic at 1.8 and he remains on a heparin drip. He has been on IV Lasix. Upon examination, patient is resting comfortably in bed with head of bed flat. He is feeling quite a bit better, breathing better. Objective - Vital Signs Vital signs: Vital Signs Temp 97.4 F L 02/19/17 08:00 Pulse 70 02/19/17 15:49 Resp 18 02/19/17 15:49 BP 120/70 02/19/17 15:48 Pulse Ox 95 02/19/17 15:48 Intake & Output 02/18/17 02/19/17 02/19/17 18:59 06:59 18:59 Intake Total 584.382 401.142 268.128 Output Total 250 1250 200 Balance 334.382 -848.858 68.128 Weight 74.7 kg 74.3 kg 74.3 kg Intake: Intake, IV Titration 164.382 401.142 28.128 Amount Heparin Sodium,Porcine/ 164.382 335.618 D5w Pmx 25,000 unit In Dextrose/Water 1 500ml. bag @ 12 UNITS/KG/HR 17.9 mls/hr IV .Q24H [facility] Rx#: [id number] Insulin Regular 100 unit 65.524 28.128 In Sodium Chloride 0.9% 100 ml @ Titrate IV .Q0M MELL Rx#:[id number] Oral 420 240 Output: Urine 250 1250 200 Other: Voiding Method Urinal Urinal Urinal Diaper Diaper Diaper # Voids 1 1 # Bowel Movements 1 - Exam PHYSICAL EXAMINATION: HEENT: Head is atraumatic, normocephalic. Pupils equal, round. Neck is supple. There is no elevated jugular venous pressure. HEART EXAMINATION: Heart sounds regular irregular, S1 and S2 normal a systolic murmur. CHEST EXAMINATION: Lungs reveal faint crackles to left base. No chest wall tenderness is noted on palpation or with deep breathing. ABDOMEN: Soft, nontender. Bowel sounds are heard. No organomegaly noted. EXTREMITIES: 1+ peripheral pulses with no evidence of peripheral edema and no calf tenderness noted. NEUROLOGIC patient is awake, alert and oriented x3. . - Labs CBC & Chem 7: 02/19/17 01:53 02/19/17 01:53 Labs: Abnormal Lab Results - Last 24 Hours (Table) 02/18/17 02/18/17 02/18/17 Range/Units 16:41 18:59 19:23 RBC (4.30-5.90) m/uL Hct (39.0-53.0) % MCV (80.0-100.0) fL MCH (25.0-35.0) pg Plt Count (150-450) k/uL PT (9.0-12.0) sec APTT 41.9 H (22.0-30.0) sec Sodium (137-145) mmol/L BUN (9-20) mg/dL Glucose (74-99) mg/dL POC Glucose (mg/dL) 380 H 357 H (75-99) mg/dL Total Protein (6.3-8.2) g/dL 02/18/17 02/18/17 02/18/17 Range/Units 22:13 22:41 23:15 RBC (4.30-5.90) m/uL Hct (39.0-53.0) % MCV (80.0-100.0) fL MCH (25.0-35.0) pg Plt Count (150-450) k/uL PT (9.0-12.0) sec APTT (22.0-30.0) sec Sodium (137-145) mmol/L BUN (9-20) mg/dL Glucose (74-99) mg/dL POC Glucose (mg/dL) 71 L 69 L 210 H (75-99) mg/dL Total Protein (6.3-8.2) g/dL 02/19/17 02/19/17 02/19/17 Range/Units 00:57 01:13 01:53 RBC 3.68 L (4.30-5.90) m/uL Hct 38.5 L (39.0-53.0) % MCV 104.7 H (80.0-100.0) fL MCH 35.3 H (25.0-35.0) pg Plt Count 137 L (150-450) k/uL PT (9.0-12.0) sec APTT (22.0-30.0) sec Sodium (137-145) mmol/L BUN (9-20) mg/dL Glucose (74-99) mg/dL POC Glucose (mg/dL) 234 H 233 H (75-99) mg/dL Total Protein (6.3-8.2) g/dL 02/19/17 02/19/17 02/19/17 Range/Units 01:53 01:53 03:38 RBC (4.30-5.90) m/uL Hct (39.0-53.0) % MCV (80.0-100.0) fL MCH (25.0-35.0) pg Plt Count (150-450) k/uL PT 14.9 H (9.0-12.0) sec APTT 46.0 H (22.0-30.0) sec Sodium 135 L (137-145) mmol/L BUN 29 H (9-20) mg/dL Glucose 206 H (74-99) mg/dL POC Glucose (mg/dL) 162 H (75-99) mg/dL Total Protein 6.2 L (6.3-8.2) g/dL 02/19/17 02/19/17 02/19/17 Range/Units 04:41 05:46 07:35 RBC (4.30-5.90) m/uL Hct (39.0-53.0) % MCV (80.0-100.0) fL MCH (25.0-35.0) pg Plt Count (150-450) k/uL PT (9.0-12.0) sec APTT (22.0-30.0) sec Sodium (137-145) mmol/L BUN (9-20) mg/dL Glucose (74-99) mg/dL POC Glucose (mg/dL) 172 H 183 H 164 H (75-99) mg/dL Total Protein (6.3-8.2) g/dL 02/19/17 02/19/17 02/19/17 Range/Units 08:13 10:01 11:55 RBC (4.30-5.90) m/uL Hct (39.0-53.0) % MCV (80.0-100.0) fL MCH (25.0-35.0) pg Plt Count (150-450) k/uL PT (9.0-12.0) sec APTT 63.8 H (22.0-30.0) sec Sodium (137-145) mmol/L BUN (9-20) mg/dL Glucose (74-99) mg/dL POC Glucose (mg/dL) 261 H 146 H (75-99) mg/dL Total Protein (6.3-8.2) g/dL 02/19/17 Range/Units 14:25 RBC (4.30-5.90) m/uL Hct (39.0-53.0) % MCV (80.0-100.0) fL MCH (25.0-35.0) pg Plt Count (150-450) k/uL PT (9.0-12.0) sec APTT (22.0-30.0) sec Sodium (137-145) mmol/L BUN (9-20) mg/dL Glucose (74-99) mg/dL POC Glucose (mg/dL) 256 H (75-99) mg/dL Total Protein (6.3-8.2) g/dL Assessment and Plan Plan: Assessment and plan #1 pneumonia #2 mental status changes and patient with Parkinson's and mild dementia, computed tomography scan negative for acute events #3 chronic atrial fibrillation, subtherapeutic INR on IV heparin #4 history of CAD with prior bypass surgery #5 history of aortic aneurysm repair #6 Parkinson's #7 dementia #8 hypertension #9 hyperlipidemia From cardiology's perspective, we will change the patient by mouth Lasix. We will give 5 mg of Coumadin tonight. We'll repeat INR in the morning. Further recommendations to follow. GLASS DESIGNER note has been reviewed, I agree with a documented findings and plan of care. Patient was seen and examined.
[2017-02-19 16:28] LABS: Glucose,Whole Blood 174 mg/dL (75-99)
[2017-02-19] MEDS ORDERED: WARFARIN 5 MG TAB PO ONE (18:00)
[2017-02-19 18:29] LABS: Glucose,Whole Blood 220 mg/dL (75-99)
[2017-02-19 20:30] LABS: Glucose,Whole Blood 174 mg/dL (75-99)
[2017-02-19] MEDS: ATORVASTATIN 40 MG TAB PO SCH (21:43)
[2017-02-19] MEDS: MELATONIN 5 MG TABLET PO SCH (21:43)
[2017-02-19] MEDS: DONEPEZIL 10 MG TAB PO SCH (21:43)
[2017-02-19] MEDS: traZODone HCL 50 MG TAB PO SCH (21:44)
[2017-02-19 22:34] LABS: Glucose,Whole Blood 128 mg/dL (75-99)
[2017-02-20 00:04] LABS: Glucose,Whole Blood 163 mg/dL (75-99)
[2017-02-20] MEDS: PIPERACILLIN-TAZOBACTAM 3.375 GM in DEXTROSE/WATER 1 50ML.BAG IVPB SCH ×4 (00:13→23:18)
[2017-02-20 01:54] LABS: Glucose,Whole Blood 187 mg/dL (75-99)
[2017-02-20 04:14] LABS: Glucose,Whole Blood 149 mg/dL (75-99)
[2017-02-20 06:11] LABS: Glucose,Whole Blood 126 mg/dL (75-99)
[2017-02-20 06:32] LABS: INR 1.9 (<1.1)
[2017-02-20] MEDS: INSULIN LISPRO (humaLOG) 300 UNIT/3 ML VIAL SQ SCH ×6 (07:08→21:29)
[2017-02-20] MEDS: FERROUS SULFATE 325 MG TAB PO SCH ×2 (07:08→16:53)
[2017-02-20] MEDS: metFORMIN 500 MG TAB PO SCH (07:08)
[2017-02-20] MEDS: SYMBICORT 160-4.5 MCG INHALER INHALATION SCH ×2 (08:04→20:16)
[2017-02-20] MEDS: IPRATROPIUM-ALBUTEROL 3 ML NEB INHALATION SCH ×4 (08:04→20:16)
[2017-02-20] MEDS: PROPRANOLOL 20 MG TAB PO SCH ×2 (08:25→21:30)
[2017-02-20] MEDS: PRIMIDONE 50 MG TAB PO SCH ×3 (08:25→21:30)
[2017-02-20] MEDS: DOCUSATE 100 MG CAP PO SCH (08:25)
[2017-02-20] MEDS: CARBIDOPA-LEVODOPA 25-100 MG 1 EACH TAB PO SCH ×3 (08:25→21:30)
[2017-02-20] MEDS: PANTOPRAZOLE 40 MG TABLET PO SCH (08:26)
[2017-02-20] MEDS: SPIRONOLACTONE 25 MG TAB PO SCH (08:26)
[2017-02-20] MEDS: ESCITALOPRAM 20 MG TAB PO SCH (08:26)
[2017-02-20] MEDS: FUROSEMIDE 10 MG/ML 4 ML VIAL IV SCH ×2 (08:26→21:29)
[2017-02-20] MEDS: DILTIAZEM CD 240 MG CAP.ER.24H PO SCH (08:26)
[2017-02-20] MEDS: predniSONE 20 MG TAB PO SCH (08:27)
[2017-02-20 11:34] LABS: Glucose,Whole Blood 197 mg/dL (75-99)
[2017-02-20] MEDS: MULTIVITAMINS, THERA 1 EACH TAB PO SCH (12:29)
--- NOTE | 2017-02-20 12:42 | P.PN ---
Subjective 71-year-old male patient, a multitude of medical problems including coronary artery disease, descending thoracic aortic endovascular stent insertion for an aneurysm, CHF, chronic A. fib, Parkinson's disease, rheumatoid arthritis and previous history of a fall with a chronic loculated fluid collection in the right lung base that has been investigated in the past for a bronchoscopy and a fine-needle aspirate and there was no indication for any underlying malignancy. The patient came in yesterday to [facility] because of worsening shortness of breath, increased coughing, increased shortness of breath, increased temperature and confusion. The patient had a CAT scan of the chest was done in [facility] that showed a loculated 13 x 6.9 cm fluid collection in the right lung base with overlying airspace disease which is essentially suggestive an underlying pneumonia. Additional airspace disease was seen in the right upper lobe. No left-sided pleural effusion. No pneumothorax. No filling defects within the pulmonary artery. The patient has moderate cardiomegaly. The patient is post bypass surgery and an aortic aneurysm ectasia with stent was seen and the findings were essentially stable. The patient has Parkinson's disease. At times is having some difficulty swallowing. No clear indication or history to suggest aspiration. He is congested in his bronchospastic and wheezy. He is a lifetime nonsmoker. No bronchial asthma. Most of emphysema. No home O2 therapy. No travel history. On 02/19/2017 I'm seeing this patient in follow-up. He is feeling much better. Less short of breath. His cough chest congestion wheezing is improved significantly. The patient is on IV Lasix 40 mg IV push every 12 hours. The patient is also on DuoNeb nebulized treatments and Symbicort as maintenance. He is covered with IV Zosyn. He is on prednisone burst taper and he was taken off the IV Solu-Medrol. is at the bedside. No fever. No chills. No change in mental status. Swallow evaluation still pending for now. On 02/20/2017 I'm seeing this patient in follow-up. The patient is doing well. The patient gradually improving. The patient is having less difficulty breathing. In fact I see the patient more interactive today. He has a congested cough. Unable to bring up much sputum. Less bronchospastic and wheezy compared to yesterday. Still on DuoNeb neb last treatment around-the- clock. He is on a prednisone burst taper. He is on IV Zosyn. No chills. No fever. No aspiration. No chest pain. No pleurisy. No other complaints otherwise. The patient is also being anticoagulative warfarin. INR is up to 1.9. PTT is also supratherapeutic. I think within next 24 hours a therapeutic INR will be achieved in this patient. Objective - Vital Signs Vital signs: Vital Signs Temp 97 F L 02/20/17 12:00 Pulse 70 02/20/17 12:00 Resp 16 02/20/17 12:00 BP 117/64 02/20/17 12:00 Pulse Ox 94 L 02/20/17 12:00 Intake & Output 02/19/17 02/20/17 02/20/17 18:59 06:59 18:59 Intake Total 279.561 461.499 520.136 Output Total 200 1650 Balance 79.561 -1188.501 520.136 Weight 74.3 kg 73.2 kg Intake: Intake, IV Titration 39.561 461.499 280.136 Amount Heparin Sodium,Porcine/ 440.94 280.136 D5w Pmx 25,000 unit In Dextrose/Water 1 500ml. bag @ 12 UNITS/KG/HR 17.9 mls/hr IV .Q24H [facility] Rx#: [id number] Insulin Regular 100 unit 39.561 20.559 In Sodium Chloride 0.9% 100 ml @ Titrate IV .Q0M MELL Rx#:[id number] Oral 240 240 Output: Urine 200 1650 Other: Voiding Method Urinal Urinal Urinal Diaper # Voids 1 1 # Bowel Movements 1 - Exam Head exam was generally normal. There was no scleral icterus or corneal arcus. Mucous membranes were moist. The patient has poker facies typical of an underlying Parkinson disease. Neck was supple and without jugular venous distension, thyromegaly, or carotid bruits. Carotids were easily palpable bilaterally. There was no adenopathy. Lung sounds are diminished bilaterally and the patient's overall bronchospasm wheezing is improved compared to yesterday. It acutely remains limited in the lung bases.. Heart sounds are irregular, possible sinus stool, no cervical murmurs appreciated. Sternum stable clean and intact.Abdominal exam revealed normal bowel sounds. The abdomen was soft, non-tender, and without masses, organomegaly, or appreciable enlargement of the abdominal aorta.Examination of the extremities revealed easily palpable radial, femoral and pedal pulses. There was no cyanosis, clubbing or edema. Neurologically the patient is awake and alert. He has some resting tremors and motor rigidity. - Labs CBC & Chem 7: 02/19/17 01:53 02/19/17 01:53 Labs: Abnormal Lab Results - Last 24 Hours (Table) 02/19/17 02/19/17 02/19/17 Range/Units 14:25 16:26 18:28 PT (9.0-12.0) sec APTT (22.0-30.0) sec POC Glucose (mg/dL) 256 H 174 H 220 H (75-99) mg/dL 02/19/17 02/19/17 02/20/17 Range/Units 20:28 22:32 00:03 PT (9.0-12.0) sec APTT (22.0-30.0) sec POC Glucose (mg/dL) 174 H 128 H 163 H (75-99) mg/dL 02/20/17 02/20/17 02/20/17 Range/Units 01:54 04:13 06:10 PT 18.0 H (9.0-12.0) sec APTT (22.0-30.0) sec POC Glucose (mg/dL) 187 H 149 H (75-99) mg/dL 02/20/17 02/20/17 02/20/17 Range/Units 06:10 06:10 11:32 PT (9.0-12.0) sec APTT 150.9 H* (22.0-30.0) sec POC Glucose (mg/dL) 126 H 197 H (75-99) mg/dL Assessment and Plan Plan: Assessment 1 acute shortness of breath associated with bronchospasm wheezing. CT of the chest was reviewed. There is a loculated chronic 13 x 6.9 cm fluid collection the right lung base which remains unchanged. Nevertheless there is a in the right lung base and the right upper lobe consistent with multifocal pneumonia. Aspiration cannot be ruled out in the setting of Parkinson's disease and possible dysphagia. The patient will be covered with broad-spectrum antibiotics. The patient recovered with a combination of bronchodilators and steroids. 2 coronary artery disease with previous bypass surgery 2009 3 congestion heart failure 4 Parkinson's disease 5 dementia 6 skin cancer in the form of basal cell and squamous cell 7 rheumatoid arthritis 8 diabetes mellitus type 2 9 hypertension 10 hyperlipidemia 11 chronic atrial fibrillation 13 nephrolithiasis 14 previous bronchoscopy and fine-needle aspirate of the right lower lobe pulmonary opacity both yielding negative for malignancy Plan The patient continues to improve. Continue with aspiration precautions. Continue with Symbicort maintenance. Continue with DuoNeb nebulized treatments around the clock. Continue with IV Zosyn. Continue with prednisone burst taper. Continue with the rest of the treatment and I'm very happy with his overall progress. He is on Lasix 40 mg IV push every 12 hours. He is also on subcu heparin for DVT prophylaxis. Blood sugars are slightly elevated and this is a steroid-induced hyperglycemia and the patient is on a sliding scale insulin coverage. As for the Coumadin level, the patient's INR is up to 1.9. IV heparin can be discontinued within the next 24 hours as the patient's PT/INR becomes therapeutic.
--- NOTE | 2017-02-20 13:47 | P.PN ---
Subjective This is a 71-year-old gentleman who follows with Dr. Guzman in the office. He is a known history of CAD with prior bypass surgery, history of ascending aortic aneurysm repair, atrial fibrillation, rheumatoid arthritis, diabetes, hypertension hyperlipidemia. This ended here from [facility] with fever, chills and worsening mental status changes. Patient is being treated for pneumonia. INR subtherapeutic at 1.8 and he remains on a heparin drip. He was switched to by mouth Lasix yesterday. Upon examination, patient is resting comfortably in bed with head of bed flat. He is feeling quite a bit better, breathing better. His confusion has resolved. Objective - Vital Signs Vital signs: Vital Signs Temp 97 F L 02/20/17 12:00 Pulse 70 02/20/17 12:00 Resp 16 02/20/17 12:00 BP 117/64 02/20/17 12:00 Pulse Ox 94 L 02/20/17 12:00 Intake & Output 02/19/17 02/20/17 02/20/17 18:59 06:59 18:59 Intake Total 279.561 461.499 760.136 Output Total 200 1650 200 Balance 79.561 -1188.501 560.136 Weight 74.3 kg 73.2 kg Intake: Intake, IV Titration 39.561 461.499 280.136 Amount Heparin Sodium,Porcine/ 440.94 280.136 D5w Pmx 25,000 unit In Dextrose/Water 1 500ml. bag @ 12 UNITS/KG/HR 17.9 mls/hr IV .Q24H [facility] Rx#: [id number] Insulin Regular 100 unit 39.561 20.559 In Sodium Chloride 0.9% 100 ml @ Titrate IV .Q0M MELL Rx#:[id number] Oral 240 480 Output: Urine 200 1650 200 Other: Voiding Method Urinal Urinal Urinal Diaper # Voids 1 1 1 # Bowel Movements 1 0 - Exam PHYSICAL EXAMINATION: HEENT: Head is atraumatic, normocephalic. Pupils equal, round. Neck is supple. There is no elevated jugular venous pressure. HEART EXAMINATION: Heart sounds regular irregular, S1 and S2 normal a systolic murmur. CHEST EXAMINATION: Lungs reveal faint crackles to left base. No chest wall tenderness is noted on palpation or with deep breathing. ABDOMEN: Soft, nontender. Bowel sounds are heard. No organomegaly noted. EXTREMITIES: 1+ peripheral pulses with no evidence of peripheral edema and no calf tenderness noted. NEUROLOGIC patient is awake, alert and oriented x3. . - Labs CBC & Chem 7: 02/19/17 01:53 02/19/17 01:53 Labs: Abnormal Lab Results - Last 24 Hours (Table) 02/19/17 02/19/17 02/19/17 Range/Units 14:25 16:26 18:28 PT (9.0-12.0) sec APTT (22.0-30.0) sec POC Glucose (mg/dL) 256 H 174 H 220 H (75-99) mg/dL 02/19/17 02/19/17 02/20/17 Range/Units 20:28 22:32 00:03 PT (9.0-12.0) sec APTT (22.0-30.0) sec POC Glucose (mg/dL) 174 H 128 H 163 H (75-99) mg/dL 02/20/17 02/20/17 02/20/17 Range/Units 01:54 04:13 06:10 PT 18.0 H (9.0-12.0) sec APTT (22.0-30.0) sec POC Glucose (mg/dL) 187 H 149 H (75-99) mg/dL 02/20/17 02/20/17 02/20/17 Range/Units 06:10 06:10 11:32 PT (9.0-12.0) sec APTT 150.9 H* (22.0-30.0) sec POC Glucose (mg/dL) 126 H 197 H (75-99) mg/dL Assessment and Plan Plan: Assessment and plan #1 pneumonia #2 mental status changes and patient with Parkinson's and mild dementia, computed tomography scan negative for acute events #3 chronic atrial fibrillation, subtherapeutic INR on IV heparin #4 history of CAD with prior bypass surgery #5 history of aortic aneurysm repair #6 Parkinson's #7 dementia #8 hypertension #9 hyperlipidemia From cardiology's perspective, we will give the patient 5 mg of Coumadin tonight. Recheck INR in the morning. Stop heparin drip. Further recommendations to follow. LOSS PREVENTION RESEARCH ENGINEER note has been reviewed, I agree with a documented findings and plan of care. Patient was seen and examined.
--- NOTE | 2017-02-20 14:49 | HP ---
HISTORY OF PRESENT ILLNESS: This 71-year-old gentleman presented to [facility] with shortness of breath and fever. The patient was found to have multiple pneumonia including right upper lobe and right lower lobe and the patient was also having worsening shortness of breath and cough and confusion. The patient was diagnosed with pneumonia and the patient had a 13 x 6.9 cm fluid collection in the right lung base because of which the patient was transferred here. This fluid collection was present in the previous imaging and is fairly stable although patient has been on broad spectrum antibiotics in the past with right lower lobe pneumonia. The patient was also in atrial fibrillation for which patient was on Cardizem and the patient does have history of Parkinsons. The patient had improved symptoms at this point, completely resolved. The patient has multiple other medical problems which will be discussed below. REVIEW OF SYSTEMS: CONSTITUTIONAL: As discussed in HPI. RESPIRATORY: As discussed in HPI. All other systems were reviewed and were negative. PAST MEDICAL HISTORY: Significant for atrial fibrillation, dementia, diabetes mellitus, ( ) dysfunction. The patient has normal ejection fraction. Hyperlipidemia, hypertension. The patient has a prostate disorder, rheumatoid arthritis. The patient had a intravascular stent for his aortic aneurysm. Coronary artery disease with previous stenting. Melanoma in the past and the patient had a ( ), hernia repair and orthopedic surgeries as well and left knee surgery. The patient does have anxiety and depression. FAMILY HISTORY: Not available at this point in time because of present medical problem. HOME MEDICATIONS: 1. Calcium citrate. 2. Magnesium gluconate. 3. Multivitamins. 4. Simvastatin. 5. Proton pump inhibitor. 6. Aspirin. 7. Lasix. 8. ( ). 9. Prednisone. 10. Trazodone. 11. Albuterol. 12. Carbidopa. 13. Levodopa. 14. Diltiazem. 15. Docusate. 16. Ferrous sulfate. 17. Propranolol. ALLERGIES: NITROGLYCERINE. PHYSICAL EXAMINATION: The patient is afebrile, pulse of 90, respirations 18, blood pressure 123/76, saturating at 94% on room air. The patient has felice crackles in the right lower lung base and minimal wheezing in the right lower lung base. Beyond that no significant wheezing is appreciated. The patient has fairly good air entry in the bilateral lungs. The patient's blood sugar started going up. LABORATORY DATA: The patient does not have any leukocytosis. Sodium is 135. ASSESSMENT AND PLAN: 1. Shortness of breath secondary to right lower lobe pneumonia as a component chronic obstructive pulmonary disease. The patient's wheezing improved. Continue broad spectrum antibiotics. 2. Coronary artery disease with previous coronary artery bypass graft. 3. Congestive heart failure, chronic. Possibility of ( ) dysfunction. The patient is not in acute exacerbation. 4 . Atrial fibrillation. The patient had rapid ventricular rate which is fairly controlled at this point. Continue present medications. The patient is not on anticoagulation at this point in time. 5. Parkinson's. Continue with home medications for that. 6. Hyperlipidemia. 7. Type 2 diabetes mellitus, controlled blood sugars. 8. ( ) as patient does not have any significant wheezing. Continue with inhalation of steroids. 9. History of aortic aneurysm with intravascular stent. PLAN: Continue broad spectrum antibiotics and rate control medications. Continue to follow. Inhalation steroids and breathing treatments. MTDD
--- NOTE | 2017-02-20 15:12 | P.PN ---
Subjective Patient was admitted for right-sided pneumonia and patient has some chronic infiltrate along with some acute infiltrate but concern is aspiration patient is presently on Zosyn, patient is also being treated for COPD exacerbation and atrial fibrillation with rapid ventricular rate is in bridging heparin along with Coumadin. Patient has significant improvement in his respiratory status. Patient's INR is almost 1.9, discontinue IV heparin continue with her 5 mg of Coumadin to be done tomorrow. Speech therapy evaluation pending. REVIEW OF SYSTEMS: CARDIOVASCULAR: No chest pain, no orthopnea, no PND, no palpitations. PULMONARY: As mentioned in interval history GASTROINTESTINAL: No diarrhea, nausea or vomiting. No abdominal pain. Normoactive bowel sounds. NEUROLOGIC: No headaches, no weakness, no numbness. Objective - Vital Signs Vital signs: Vital Signs Temp 97 F L 02/20/17 12:00 Pulse 70 02/20/17 12:00 Resp 16 02/20/17 12:00 BP 117/64 02/20/17 12:00 Pulse Ox 94 L 02/20/17 12:00 Intake & Output 02/19/17 02/20/17 02/20/17 18:59 06:59 18:59 Intake Total 279.561 461.499 760.136 Output Total 200 1650 200 Balance 79.561 -1188.501 560.136 Weight 74.3 kg 73.2 kg Intake: Intake, IV Titration 39.561 461.499 280.136 Amount Heparin Sodium,Porcine/ 440.94 280.136 D5w Pmx 25,000 unit In Dextrose/Water 1 500ml. bag @ 12 UNITS/KG/HR 17.9 mls/hr IV .Q24H [facility] Rx#: [id number] Insulin Regular 100 unit 39.561 20.559 In Sodium Chloride 0.9% 100 ml @ Titrate IV .Q0M [facility] Rx#:[id number] Oral 240 480 Output: Urine 200 1650 200 Other: Voiding Method Urinal Urinal Urinal Diaper # Voids 1 1 1 # Bowel Movements 1 0 - Exam GENERAL: The patient is alert and oriented x3, not in any acute distress. Well developed, well nourished. HEENT: Pupils are round and equally reacting to light. EOMI. No scleral icterus. No conjunctival pallor. Normocephalic, atraumatic. No pharyngeal erythema. No thyromegaly. CARDIOVASCULAR: S1 and S2 present. No murmurs, rubs, or gallops. Patient has a regular rhythm. PULMONARY: Patient has rhonchorous breath sounds with minimal right-sided expiratory wheezing along with some bronchophony egophony on the right lower lung bases posteriorly. ABDOMEN: Soft, nontender, nondistended, normoactive bowel sounds. No palpable organomegaly. MUSCULOSKELETAL: No joint swelling or deformity. EXTREMITIES: No cyanosis, clubbing, or pedal edema. NEUROLOGICAL: Gross neurological examination did not reveal any focal deficits. SKIN: No rashes. - Labs CBC & Chem 7: 02/19/17 01:53 02/19/17 01:53 Labs: Abnormal Lab Results - Last 24 Hours (Table) 02/19/17 02/19/17 02/19/17 Range/Units 16:26 18:28 20:28 PT (9.0-12.0) sec APTT (22.0-30.0) sec POC Glucose (mg/dL) 174 H 220 H 174 H (75-99) mg/dL 02/19/17 02/20/17 02/20/17 Range/Units 22:32 00:03 01:54 PT (9.0-12.0) sec APTT (22.0-30.0) sec POC Glucose (mg/dL) 128 H 163 H 187 H (75-99) mg/dL 02/20/17 02/20/17 02/20/17 Range/Units 04:13 06:10 06:10 PT 18.0 H (9.0-12.0) sec APTT (22.0-30.0) sec POC Glucose (mg/dL) 149 H 126 H (75-99) mg/dL 02/20/17 02/20/17 Range/Units 06:10 11:32 PT (9.0-12.0) sec APTT 150.9 H* (22.0-30.0) sec POC Glucose (mg/dL) 197 H (75-99) mg/dL Assessment and Plan Plan: #1 Acute hypoxic and hypercapnic respiratory failure secondary to right lower lobe pneumonia along with COPD exacerbation: Continue with the systemic steroids inhalational treatments and IV Zosyn. Speech therapy will be consulted #2 atrial fibrillation with rapid ventricular rate fairly rate controlled at this point of time switched to oral rate control medications along with anticoagulation as mentioned in the HPI 3 coronary artery disease with previous bypass surgery 2009 4 Parkinson's disease 5 dementia mild and probably Parkinsonian-related. 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
[2017-02-20 15:18] VITALS: RESP 20
[2017-02-20 16:46] LABS: Glucose,Whole Blood 239 mg/dL (75-99)
--- NOTE | 2017-02-20 17:36 | P.PN ---
Subjective Date of service 02/19/2017. Progress note being dictated for Dr. Jones. Interval history: This a 71-year-old gentleman admitted with right lower lobe pneumonia, acute COPD exacerbation, atrial fibrillation and multiple other medical issues. Maintained on Zosyn . Anticoagulated on both heparin drip and Coumadin. INR 1.5. Continues on insulin drip, steroids converted to oral. Good diet intake with no nausea vomiting or diarrhea. Breathing improving, less wheezing today. Denies chest pain, palpitations or increasing shortness of breath. Objective - Vital Signs Vital signs: Vital Signs Temp 97.4 F L 02/19/17 08:00 Pulse 72 02/19/17 19:52 Resp 18 02/19/17 15:49 BP 120/70 02/19/17 15:48 Pulse Ox 95 02/19/17 15:48 Intake & Output 02/19/17 02/19/17 02/20/17 06:59 18:59 06:59 Intake Total 401.142 279.561 447.606 Output Total 1250 200 200 Balance -848.858 79.561 247.606 Weight 74.3 kg 74.3 kg Intake: Intake, IV Titration 401.142 39.561 447.606 Amount Heparin Sodium,Porcine/ 335.618 440.94 D5w Pmx 25,000 unit In Dextrose/Water 1 500ml. bag @ 12 UNITS/KG/HR 17.9 mls/hr IV .Q24H [facility] Rx#: [id number] Insulin Regular 100 unit 65.524 39.561 6.666 In Sodium Chloride 0.9% 100 ml @ Titrate IV .Q0M [facility] Rx#:[id number] Oral 240 Output: Urine 1250 200 200 Other: Voiding Method Urinal Urinal Diaper Diaper # Voids 1 1 # Bowel Movements 1 - Exam PHYSICAL EXAM: VITAL SIGNS: As above GENERAL: [Sitting up in chair, no acute distress] HEENT: [Pupils equal conjunctiva normal. Oral mucosa moist, no conjunctival pallor] NECK: [Supple, no JVD] RESPIRATORY EFFORT:[ Normal] LUNGS: [Diminished, Scattered rhonchi throughout, improving fine right-sided expiratory wheezing no crackles] CARDIOVASCULAR[ irregular, no murmurs rubs or gallops, no edema] GI: [Abdomen soft, nontender, positive bowel sounds.] PSYCH: [Alert and oriented -3, mood and affect normal.] NEURO: No focal deficits, fine resting tremors,moves all 4 extremities, strength and sensation grossly intact - Labs CBC & Chem 7: 02/19/17 01:53 02/19/17 01:53 Labs: Abnormal Lab Results - Last 24 Hours (Table) 02/18/17 02/18/17 02/18/17 Range/Units 22:13 22:41 23:15 RBC (4.30-5.90) m/uL Hct (39.0-53.0) % MCV (80.0-100.0) fL MCH (25.0-35.0) pg Plt Count (150-450) k/uL PT (9.0-12.0) sec APTT (22.0-30.0) sec Sodium (137-145) mmol/L BUN (9-20) mg/dL Glucose (74-99) mg/dL POC Glucose (mg/dL) 71 L 69 L 210 H (75-99) mg/dL Total Protein (6.3-8.2) g/dL 02/19/17 02/19/17 02/19/17 Range/Units 00:57 01:13 01:53 RBC 3.68 L (4.30-5.90) m/uL Hct 38.5 L (39.0-53.0) % MCV 104.7 H (80.0-100.0) fL MCH 35.3 H (25.0-35.0) pg Plt Count 137 L (150-450) k/uL PT (9.0-12.0) sec APTT (22.0-30.0) sec Sodium (137-145) mmol/L BUN (9-20) mg/dL Glucose (74-99) mg/dL POC Glucose (mg/dL) 234 H 233 H (75-99) mg/dL Total Protein (6.3-8.2) g/dL 02/19/17 02/19/17 02/19/17 Range/Units 01:53 01:53 03:38 RBC (4.30-5.90) m/uL Hct (39.0-53.0) % MCV (80.0-100.0) fL MCH (25.0-35.0) pg Plt Count (150-450) k/uL PT 14.9 H (9.0-12.0) sec APTT 46.0 H (22.0-30.0) sec Sodium 135 L (137-145) mmol/L BUN 29 H (9-20) mg/dL Glucose 206 H (74-99) mg/dL POC Glucose (mg/dL) 162 H (75-99) mg/dL Total Protein 6.2 L (6.3-8.2) g/dL 02/19/17 02/19/17 02/19/17 Range/Units 04:41 05:46 07:35 RBC (4.30-5.90) m/uL Hct (39.0-53.0) % MCV (80.0-100.0) fL MCH (25.0-35.0) pg Plt Count (150-450) k/uL PT (9.0-12.0) sec APTT (22.0-30.0) sec Sodium (137-145) mmol/L BUN (9-20) mg/dL Glucose (74-99) mg/dL POC Glucose (mg/dL) 172 H 183 H 164 H (75-99) mg/dL Total Protein (6.3-8.2) g/dL 02/19/17 02/19/17 02/19/17 Range/Units 08:13 10:01 11:55 RBC (4.30-5.90) m/uL Hct (39.0-53.0) % MCV (80.0-100.0) fL MCH (25.0-35.0) pg Plt Count (150-450) k/uL PT (9.0-12.0) sec APTT 63.8 H (22.0-30.0) sec Sodium (137-145) mmol/L BUN (9-20) mg/dL Glucose (74-99) mg/dL POC Glucose (mg/dL) 261 H 146 H (75-99) mg/dL Total Protein (6.3-8.2) g/dL 02/19/17 02/19/17 02/19/17 Range/Units 14:25 16:26 18:28 RBC (4.30-5.90) m/uL Hct (39.0-53.0) % MCV (80.0-100.0) fL MCH (25.0-35.0) pg Plt Count (150-450) k/uL PT (9.0-12.0) sec APTT (22.0-30.0) sec Sodium (137-145) mmol/L BUN (9-20) mg/dL Glucose (74-99) mg/dL POC Glucose (mg/dL) 256 H 174 H 220 H (75-99) mg/dL Total Protein (6.3-8.2) g/dL 02/19/17 Range/Units 20:28 RBC (4.30-5.90) m/uL Hct (39.0-53.0) % MCV (80.0-100.0) fL MCH (25.0-35.0) pg Plt Count (150-450) k/uL PT (9.0-12.0) sec APTT (22.0-30.0) sec Sodium (137-145) mmol/L BUN (9-20) mg/dL Glucose (74-99) mg/dL POC Glucose (mg/dL) 174 H (75-99) mg/dL Total Protein (6.3-8.2) g/dL Assessment and Plan Plan: 1. [ Acute hypoxic and hypercapnic respiratory failure secondary to both right multifocal pneumonia-possible aspiration and acute COPD exacerbation]. CT reports loculated chronic 13 x 6.9 fluid collection in the right lung base- unchanged. Swallow evalSwallow eval. pending. 2. [ Atrial fibrillation with RVR, currently with controlled ventricular rate]. 3. [ Heparin monitoring]. 4. [ Coumadin monitoring]. 5. [ CAD, history of CABG]. 6. [ Parkinson's disease]. 7. [ Mild dementia, possibly Parkinsonian]. 8. Rheumatoid arthritis 9. Hypertension 10. Hyperlipidemia 11. Chronic congestive heart failure without acute exacerbation 12. Skin cancer, basal cell and squamous cell Plan: Continue on current medication regime, nebulized bronchodilators, Zosyn, steroids, monitoring and symptomatic treatment. PT/OT. tapering of steroids in progress as per pulmonary. Continue anticoagulation on both Heparin and Coumadin, with Coumadin 5 mg by mouth tonight. Daily PT/INR. The impression and plan of care has been dictated as directed. : I performed a H&P examination of this patient and discussed the same with the dictator. I agree with the dictator's note. Any additional findings/opinions/ etc. will be noted.
[2017-02-20] MEDS ORDERED: WARFARIN 5 MG TAB PO ONE (18:00)
[2017-02-20 20:55] LABS: Glucose,Whole Blood 224 mg/dL (75-99)
[2017-02-20] MEDS: DONEPEZIL 10 MG TAB PO SCH (21:29)
[2017-02-20] MEDS: ATORVASTATIN 40 MG TAB PO SCH (21:29)
[2017-02-20] MEDS: MELATONIN 5 MG TABLET PO SCH (21:30)
[2017-02-20] MEDS: traZODone HCL 50 MG TAB PO SCH (21:30)
[2017-02-21 06:17] LABS: Glucose,Whole Blood 142 mg/dL (75-99)
[2017-02-21] MEDS: metFORMIN 500 MG TAB PO SCH (07:04)
[2017-02-21] MEDS: INSULIN LISPRO (humaLOG) 300 UNIT/3 ML VIAL SQ SCH ×2 (07:04→12:41)
[2017-02-21] MEDS: FERROUS SULFATE 325 MG TAB PO SCH (07:05)
[2017-02-21 07:23] LABS: INR 2.3 (<1.1); Prothrombin Time 21.9 sec (9.0-12.0)
[2017-02-21 08:20] LABS: Anion Gap 13 mmol/L; Blood Urea Nitrogen 36 mg/dL (9-20); Calcium 9.1 mg/dL (8.4-10.2); Carbon Dioxide 29 mmol/L (22-30); Chloride 93 mmol/L (98-107); Glucose 135 mg/dL (74-99); Magnesium 2.1 mg/dL (1.6-2.3); Non-African American GFR(MDRD) 51 (>60 ml/min/1.73 sqM); Potassium 3.8 mmol/L (3.5-5.1); Sodium 135 mmol/L (137-145)
[2017-02-21] MEDS: DILTIAZEM CD 240 MG CAP.ER.24H PO SCH (08:30)
[2017-02-21] MEDS: predniSONE 20 MG TAB PO SCH (08:30)
[2017-02-21] MEDS: PRIMIDONE 50 MG TAB PO SCH ×2 (08:30→14:25)
[2017-02-21] MEDS: FUROSEMIDE 10 MG/ML 4 ML VIAL IV SCH (08:30)
[2017-02-21] MEDS: CARBIDOPA-LEVODOPA 25-100 MG 1 EACH TAB PO SCH ×2 (08:31→14:25)
[2017-02-21] MEDS: DOCUSATE 100 MG CAP PO SCH (08:31)
[2017-02-21] MEDS: ESCITALOPRAM 20 MG TAB PO SCH (08:32)
[2017-02-21] MEDS: PANTOPRAZOLE 40 MG TABLET PO SCH (08:32)
[2017-02-21] MEDS: SPIRONOLACTONE 25 MG TAB PO SCH (08:32)
[2017-02-21] MEDS: PIPERACILLIN-TAZOBACTAM 3.375 GM in DEXTROSE/WATER 1 50ML.BAG IVPB SCH (09:33)
[2017-02-21] MEDS: IPRATROPIUM-ALBUTEROL 3 ML NEB INHALATION SCH ×2 (10:00→12:10)
[2017-02-21] MEDS: SYMBICORT 160-4.5 MCG INHALER INHALATION SCH (10:00)
[2017-02-21 11:40] LABS: Glucose,Whole Blood 242 mg/dL (75-99)
[2017-02-21 12:33] VITALS: BP 111/69; PULSE 97; TEMP 97.3
[2017-02-21] MEDS: PROPRANOLOL 20 MG TAB PO SCH (12:41)
[2017-02-21] MEDS: MULTIVITAMINS, THERA 1 EACH TAB PO SCH (12:41)
--- NOTE | 2017-02-21 12:47 | P.PN ---
Subjective 71-year-old male patient, a multitude of medical problems including coronary artery disease, descending thoracic aortic endovascular stent insertion for an aneurysm, CHF, chronic A. fib, Parkinson's disease, rheumatoid arthritis and previous history of a fall with a chronic loculated fluid collection in the right lung base that has been investigated in the past for a bronchoscopy and a fine-needle aspirate and there was no indication for any underlying malignancy. The patient came in yesterday to [facility] because of worsening shortness of breath, increased coughing, increased shortness of breath, increased temperature and confusion. The patient had a CAT scan of the chest was done in [facility] that showed a loculated 13 x 6.9 cm fluid collection in the right lung base with overlying airspace disease which is essentially suggestive an underlying pneumonia. Additional airspace disease was seen in the right upper lobe. No left-sided pleural effusion. No pneumothorax. No filling defects within the pulmonary artery. The patient has moderate cardiomegaly. The patient is post bypass surgery and an aortic aneurysm ectasia with stent was seen and the findings were essentially stable. The patient has Parkinson's disease. At times is having some difficulty swallowing. No clear indication or history to suggest aspiration. He is congested in his bronchospastic and wheezy. He is a lifetime nonsmoker. No bronchial asthma. Most of emphysema. No home O2 therapy. No travel history. On 02/19/2017 I'm seeing this patient in follow-up. He is feeling much better. Less short of breath. His cough chest congestion wheezing is improved significantly. The patient is on IV Lasix 40 mg IV push every 12 hours. The patient is also on DuoNeb nebulized treatments and Symbicort as maintenance. He is covered with IV Zosyn. He is on prednisone burst taper and he was taken off the IV Solu-Medrol. is at the bedside. No fever. No chills. No change in mental status. Swallow evaluation still pending for now. On 02/20/2017 I'm seeing this patient in follow-up. The patient is doing well. The patient gradually improving. The patient is having less difficulty breathing. In fact I see the patient more interactive today. He has a congested cough. Unable to bring up much sputum. Less bronchospastic and wheezy compared to yesterday. Still on DuoNeb neb last treatment around-the- clock. He is on a prednisone burst taper. He is on IV Zosyn. No chills. No fever. No aspiration. No chest pain. No pleurisy. No other complaints otherwise. The patient is also being anticoagulative warfarin. INR is up to 1.9. PTT is also supratherapeutic. I think within next 24 hours a therapeutic INR will be achieved in this patient. On 2016 the patient is feeling better. Sitting up on a chair. He was able to ambulate. No significant shortness of breath. Some minimal residual cough and chest congestion. PT/INR is therapeutic for now. A swallow evaluation has not been done in we are looking to do this on outpatient basis. Objective - Vital Signs Vital signs: Vital Signs Temp 97.3 F L 02/21/17 12:00 Pulse 84 02/21/17 12:23 Resp 20 02/21/17 12:00 BP 111/69 02/21/17 12:00 Pulse Ox 98 02/21/17 12:00 Intake & Output 02/20/17 02/21/17 02/21/17 18:59 06:59 18:59 Intake Total 760.136 50 125 Output Total 200 250 500 Balance 560.136 -200 -375 Weight 73.2 kg Intake: Intake, IV Titration 280.136 50 Amount Heparin Sodium,Porcine/ 280.136 D5w Pmx 25,000 unit In Dextrose/Water 1 500ml. bag @ 12 UNITS/KG/HR 17.9 mls/hr IV .Q24H [facility] Rx#: [id number] Piperacillin-Tazobactam 3 50 .375 gm In Dextrose/Water 1 50ml.bag @ 12.5 mls/hr IVPB Q8HR [facility] Rx#: [id number] Oral 480 125 Output: Urine 200 250 500 Other: Voiding Method Urinal Urinal Urinal # Voids 1 0 # Bowel Movements 0 - Exam Head exam was generally normal. There was no scleral icterus or corneal arcus. Mucous membranes were moist. The patient has poker facies typical of an underlying Parkinson disease. Neck was supple and without jugular venous distension, thyromegaly, or carotid bruits. Carotids were easily palpable bilaterally. There was no adenopathy. Lung sounds are diminished bilaterally and the patient's overall bronchospasm wheezing is improved compared to yesterday. It acutely remains limited in the lung bases.. Heart sounds are irregular, possible sinus stool, no cervical murmurs appreciated. Sternum stable clean and intact.Abdominal exam revealed normal bowel sounds. The abdomen was soft, non-tender, and without masses, organomegaly, or appreciable enlargement of the abdominal aorta.Examination of the extremities revealed easily palpable radial, femoral and pedal pulses. There was no cyanosis, clubbing or edema. Neurologically the patient is awake and alert. He has some resting tremors and motor rigidity. - Labs CBC & Chem 7: 02/19/17 01:53 02/21/17 05:53 Labs: Abnormal Lab Results - Last 24 Hours (Table) 02/20/17 02/20/17 02/21/17 Range/Units 16:44 20:53 05:53 PT 21.9 H (9.0-12.0) sec Sodium (137-145) mmol/L Chloride (98-107) mmol/L BUN (9-20) mg/dL Creatinine (0.66-1.25) mg/dL Glucose (74-99) mg/dL POC Glucose (mg/dL) 239 H 224 H (75-99) mg/dL 02/21/17 02/21/17 02/21/17 Range/Units 05:53 06:16 11:39 PT (9.0-12.0) sec Sodium 135 L (137-145) mmol/L Chloride 93 L (98-107) mmol/L BUN 36 H (9-20) mg/dL Creatinine 1.37 H (0.66-1.25) mg/dL Glucose 135 H (74-99) mg/dL POC Glucose (mg/dL) 142 H 242 H (75-99) mg/dL Assessment and Plan Plan: Assessment 1 acute shortness of breath associated with bronchospasm wheezing. CT of the chest was reviewed. There is a loculated chronic 13 x 6.9 cm fluid collection the right lung base which remains unchanged. Nevertheless there is a in the right lung base and the right upper lobe consistent with multifocal pneumonia. Aspiration cannot be ruled out in the setting of Parkinson's disease and possible dysphagia. The patient will be covered with broad-spectrum antibiotics. The patient recovered with a combination of bronchodilators and steroids. 2 coronary artery disease with previous bypass surgery 2009 3 congestion heart failure 4 Parkinson's disease 5 dementia 6 skin cancer in the form of basal cell and squamous cell 7 rheumatoid arthritis 8 diabetes mellitus type 2 9 hypertension 10 hyperlipidemia 11 chronic atrial fibrillation 13 nephrolithiasis 14 previous bronchoscopy and fine-needle aspirate of the right lower lobe pulmonary opacity both yielding negative for malignancy Plan The patient has improved. The patient a prednisone burst taper. The patient can be switched to oral Lasix. The patient can be switched to oral Augmentin. Aspiration precautions. Consider discharging this patient home today to be followed up on outpatient basis regarding the right lower lobe pulmonary opacity and regarding swallow evaluation.
--- NOTE | 2017-02-21 13:59 | P.DS ---
Providers Date of admission: 02/17/17 23:50 Attending physician: Lexus Jones Consults: 02/18/17 01:57 Consult Physician Routine Consulting Provider: Alyssia Carrasco Consult Reason/Comments: CHF Do you want consulting provider notified?: Yes Consult Physician Urgent Consulting Provider: Blake Cunningham Consult Reason/Comments: pleural effusion Do you want consulting provider notified?: Yes Primary care physician: Stated None Hospital Course: Patient was admitted for right-sided pneumonia and patient has some chronic infiltrate along with some acute infiltrate but concern is aspiration patient was on on Zosyn, which was switched to Augmentin for a week and patient will be discharged patient is also being treated for COPD exacerbation and atrial fibrillation with rapid ventricular rate and patient is presently on Coumadin 4 mg daily cannot envision Meaghan and 40 mg patient is receiving 5 mg here due to the interaction of Coumadin with antibiotic and prednisone patient was discharged on a low-dose of Coumadin with repeat INR in 3 days. Because of the week and we're unable to get speech therapy evaluation which can be done as outpatient and follow-up patient will follow with RADHA Hernandez. Because of stroke stars and uncontrolled blood sugars and increasing metformin 2000 twice a day. #1 Acute hypoxic and hypercapnic respiratory failure secondary to right lower lobe pneumonia along with COPD exacerbation: Continue with the systemic steroids inhalational treatments. 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 6 skin cancer in the form of basal cell and squamous cell 7 rheumatoid arthritis 8 diabetes mellitus type 2 9 hypertension 10 hyperlipidemia 11 congestive heart failure possible chronic diastolic dysfunction without any good exacerbation Plan - Discharge Summary New Discharge Prescriptions: New Albuterol Inhaler [Ventolin Hfa Inhaler] 1 - 2 puff INHALATION Q6HR PRN #1 inhaler PRN Reason: Shortness Of Breath Or Wheezing Budesonide-Formot 160-4.5 Mcg [Symbicort 160-4.5 Mcg Inhaler] 2 puff INHALATION BID #1 inhaler predniSONE 10 mg PO DAILY #20 tab Tiotropium Clemmons [Spiriva] 1 cap INHALATION DAILY #1 device Amoxic-Pot Clav 875-125Mg [Augmentin 875-125] 1 tab PO Q12HR #14 tablet Continue Multivitamin [Men's Multi-Vitamin] 1 tab PO DAILY@1200 Magnesium Gluconate [Magonate] 500 mg PO DAILY Calcium Citrate/Vitamin D3 [Calcium Citrate - Vit D3 Tab] 1 tab PO BID Simvastatin [Zocor] 40 mg PO HS Spironolactone 12.5 mg PO DAILY Escitalopram [Lexapro] 20 mg PO DAILY Aspirin EC [Ecotrin Low Dose] 81 mg PO HS traZODone HCL 50 mg PO HS Primidone [Mysoline] 50 mg PO TID Furosemide [Lasix] 20 mg PO DAILY Donepezil [Aricept] 10 mg PO HS Warfarin Sodium [Coumadin] 4 mg PO DAILY #0 Albuterol Sulfate [Ventolin HFA] 1 puff INHALATION RT-TID PRN PRN Reason: Shortness Of Breath Carbidopa-Levodopa 25-100 mg [Sinemet 25-100 mg] 1 tab PO TID Diltiazem HCl [Diltiazem 24Hr ER] 240 mg PO DAILY Ferrous Sulfate [Iron (65 MG Elemental)] 325 mg PO BID Propranolol [Inderal] 20 mg PO BID Thiamine [Vitamin B-1] 250 mg PO DAILY@1200 Docusate Extra Strength 250 mg PO HS Changed metFORMIN HCL [Glucophage] 1,000 mg PO BID #30 Discontinued predniSONE 10 mg PO DAILY Discharge Medication List Calcium Citrate/Vitamin D3 [Calcium Citrate - Vit D3 Tab] 1 tab PO BID 03/29/14 [History] Magnesium Gluconate [Magonate] 500 mg PO DAILY 03/29/14 [History] Multivitamin [Men's Multi-Vitamin] 1 tab PO DAILY@1200 03/29/14 [History] Simvastatin [Zocor] 40 mg PO HS 04/27/14 [History] Spironolactone 12.5 mg PO DAILY 04/10/15 [History] Escitalopram [Lexapro] 20 mg PO DAILY 05/07/15 [History] Aspirin EC [Ecotrin Low Dose] 81 mg PO HS 06/01/16 [History] Donepezil [Aricept] 10 mg PO HS 06/01/16 [History] Furosemide [Lasix] 20 mg PO DAILY 06/01/16 [History] Primidone [Mysoline] 50 mg PO TID 06/01/16 [History] traZODone HCL 50 mg PO HS 06/01/16 [History] Warfarin Sodium [Coumadin] 4 mg PO DAILY #0 06/03/16 [Rx] Albuterol Sulfate [Ventolin HFA] 1 puff INHALATION RT-TID PRN 02/18/17 [History] Carbidopa-Levodopa 25-100 mg [Sinemet 25-100 mg] 1 tab PO TID 02/18/17 [History] Diltiazem HCl [Diltiazem 24Hr ER] 240 mg PO DAILY 02/18/17 [History] Docusate Extra Strength 250 mg PO HS 02/18/17 [History] Ferrous Sulfate [Iron (65 MG Elemental)] 325 mg PO BID 02/18/17 [History] Propranolol [Inderal] 20 mg PO BID 02/18/17 [History] Thiamine [Vitamin B-1] 250 mg PO DAILY@1200 02/18/17 [History] Albuterol Inhaler [Ventolin Hfa Inhaler] 1 - 2 puff INHALATION Q6HR PRN #1 inhaler 02/21/17 [Rx] Amoxic-Pot Clav 875-125Mg [Augmentin 875-125] 1 tab PO Q12HR #14 tablet [Rx] Budesonide-Formot 160-4.5 Mcg [Symbicort 160-4.5 Mcg Inhaler] 2 puff INHALATION BID #1 inhaler 02/21/17 [Rx] Tiotropium Clemmons [Spiriva] 1 cap INHALATION DAILY #1 device 02/21/17 [Rx] metFORMIN HCL [Glucophage] 1,000 mg PO BID #30 02/21/17 [Rx] predniSONE 10 mg PO DAILY #20 tab 02/21/17 [Rx] Follow up Appointment(s)/Referral(s): [facility], [NON-STAFF] - Blake Cunningham MD [STAFF PHYSICIAN] - 1 Week Patient Instructions/Handouts: Pneumonia (DC) Discharge Disposition: HOME WITH HOME HEALTH SERVICES
--- NOTE | 2017-02-25 15:16 | CDI ---
In responding to this query, please exercise your independent professional judgment. The [facility] Coding Staff and Clinical Documentation Specialists appreciate your assistance in clarifying documentation, maintaining compliance with coding guidelines, accurately documenting patients condition and capturing severity of illness. The fact that a question is asked does not imply that any particular answer is desired or expected. Communication forms are a method of clarifying documentation and are not made part of the Legal Health Record. Thank you in advance for your clarification. Last Revision, October 2015 [facility] [address] [place] [place] [address] Documentation Clarification Form Date: 02/25/2017 3:04:00 PM From: Mariann Boyd [facility] & Carol Forde, Wood Machinist Apprentice & [phone] Admit Date: 02/17/2017 11:50:00 PM Patient Name: Aquilino Lennon Visit Number: [id number] Discharge Date: 02-21-17 Dr. Lexus Jones Please confirm if the patient had acute hypoxic/hypercapnic respiratory failure based on the clinical findings below: Discharge Summary states #1 --Acute hypoxic and hypercapnic respiratory failure secondary to right lower lobe pneumonia along with COPD exacerbation. History/Risk Factors: Aspiration pneumonia, CHF chronic diastolic, CAD, dysphagia, AAA, Parkinsonism with dementia, aortic regurgitation, hyperglycemia in diabetes mellitus, AF, HTN, CABG, COPD, bronchospasm Tobacco use: none Home oxygen: no and none used in hospital this admission Vital signs/Pulse oximetry: 91-98% pulse ox readings this admission Lung/Breathing assessment: Nursing states "non-labored breathing". ABG-none Treatment: Pulmonary consult, CXR, echo, Cardiology consult Breathing tx: Nebs Continuous Pulse ox Vent/BiPap: none In your professional opinion, can you please clarify if these findings signify one of the following conditions? Acuity: o Acute o Chronic o Acute on Chronic Respiratory Status: o Respiratory failure o Respiratory failure with hypercapnia o Respiratory failure with hypoxia o Acute Respiratory Distress o Other Diagnosis, please specify o Unable to determine Please document in your progress notes and discharge summary in order to capture severity of illness and risk of mortality. Include clinical findings that support your diagnosis. FYI: Press F11 to launch patient chart. Place X here if this finding has no clinical significance, is not applicable or if you are not able to provide any additional documentation. MTDD
--- NOTE | 2017-03-26 08:24 | CDI ---
In responding to this query, please exercise your independent professional judgment. The [facility] Coding Staff and Clinical Documentation Specialists appreciate your assistance in clarifying documentation, maintaining compliance with coding guidelines, accurately documenting patients condition and capturing severity of illness. The fact that a question is asked does not imply that any particular answer is desired or expected. Communication forms are a method of clarifying documentation and are not made part of the Legal Health Record. Thank you in advance for your clarification. Last Revision, October 2015 [facility] [address] [place] [address] Documentation Clarification Form Date: 02/25/2017 3:04:00 PM From: Mariann Boyd Admit Date: 02/17/2017 11:50:00 PM Patient Name: Aquilino Lennon Visit Number: [id number] Discharge Date: 02-21-17 Dr. Lexus Jones Thank you for responding to this query by removing acute respiratory failure from the H&P. However, the Discharge Summary still states Acute Respiratory Failure. PLEASE DO AN ADDENDUM TO DISCHARGE SUMMARY stating that acute respiratory failure should be removed as a final diagnosis for this patient. Please confirm if the patient had acute hypoxic/hypercapnic respiratory failure based on the clinical findings below: Discharge Summary states #1 --Acute hypoxic and hypercapnic respiratory failure secondary to right lower lobe pneumonia along with COPD exacerbation. History/Risk Factors: Aspiration pneumonia, CHF chronic diastolic, CAD, dysphagia, AAA, Parkinsonism with dementia, aortic regurgitation, hyperglycemia in diabetes mellitus, AF, HTN, CABG, COPD, bronchospasm Tobacco use: none Home oxygen: no and none used in hospital this admission Vital signs/Pulse oximetry: 91-98% pulse ox readings this admission Lung/Breathing assessment: Nursing states "non-labored breathing". ABG-none Treatment: Pulmonary consult, CXR, echo, Cardiology consult Breathing tx: Nebs Continuous Pulse ox Vent/BiPap: none In your professional opinion, can you please clarify if these findings signify one of the following conditions? Acuity: o Acute o Chronic o Acute on Chronic Respiratory Status: o Respiratory failure o Respiratory failure with hypercapnia o Respiratory failure with hypoxia o Acute Respiratory Distress o Other Diagnosis, please specify o Unable to determine Please document in your discharge summary in order to capture severity of illness and risk of mortality. Include clinical findings that support your diagnosis. If you have a question about this query, please contact Carol Forde Farmworker Machine at [phone] between 8am-5pm. FYI: Press F11 to launch patient chart. MTDD
--- NOTE | 2017-03-29 16:04 | CDI ---
In responding to this query, please exercise your independent professional judgment. The [facility] Coding Staff and Clinical Documentation Specialists appreciate your assistance in clarifying documentation, maintaining compliance with coding guidelines, accurately documenting patients condition and capturing severity of illness. The fact that a question is asked does not imply that any particular answer is desired or expected. Communication forms are a method of clarifying documentation and are not made part of the Legal Health Record. Thank you in advance for your clarification. Last Revision, October 2015 [facility] [address] [place] [address] Documentation Clarification Form Date: 02/25/2017 3:04:00 PM From: Mariann Boyd [facility] Admit Date: 02/17/2017 11:50:00 PM Patient Name: Aquilino Lennon Visit Number: [id number] Discharge Date: 02-21-17 Dr. Lexus Jones Thank you for responding to this query by removing acute respiratory failure from the H&P. However, the Discharge Summary still states Acute Respiratory Failure. YOU MAY INDICATE YOUR RESPONSE TO THIS QUERY FORM AT THE BOTTOM BY INSERTING TEXT. IN DOING SO, YOU WILL NOT NEED TO DO AN ADDENDUM. Please confirm if the patient had acute hypoxic/hypercapnic respiratory failure based on the clinical findings below: Discharge Summary states #1 --Acute hypoxic and hypercapnic respiratory failure secondary to right lower lobe pneumonia along with COPD exacerbation. History/Risk Factors: Aspiration pneumonia, CHF chronic diastolic, CAD, dysphagia, AAA, Parkinsonism with dementia, aortic regurgitation, hyperglycemia in diabetes mellitus, AF, HTN, CABG, COPD, bronchospasm Tobacco use: none Home oxygen: no and none used in hospital this admission Vital signs/Pulse oximetry: 91-98% pulse ox readings this admission Lung/Breathing assessment: Nursing states "non-labored breathing". ABG-none Treatment: Pulmonary consult, CXR, echo, Cardiology consult Breathing tx: Nebs Continuous Pulse ox Vent/BiPap: none In your professional opinion, can you please clarify if these findings signify one of the following conditions? Acuity: o Acute o Chronic o Acute on Chronic Respiratory Status: o Respiratory failure o Respiratory failure with hypercapnia o Respiratory failure with hypoxia o Acute Respiratory Distress o Other Diagnosis, please specify o Unable to determine If you have a question about this query, please contact Carol Forde Environmental Compliance Manager at [phone] between 8am-5pm. FYI: Press F11 to launch patient chart. As per the chart no further changes will be made MTDD
== END 2017-02-21 14:57 | disposition home health service (06) | DRG 178 ==
LOC: 6SEL 23:50
PROVIDERS: ADMIT Internal Medicine; ATTEND Internal Medicine
DX: J69.0 Pneumonitis due to inhalation of food and vomit (principal); I48.1 Persistent atrial fibrillation; E11.65 Type 2 diabetes mellitus with hyperglycemia; I11.0 Hypertensive heart disease with heart failure; G20 Parkinson's disease; I50.32 Chronic diastolic (congestive) heart failure; J44.1 Chronic obstructive pulmonary disease with (acute) exacerbation; I25.810 Atherosclerosis of coronary artery bypass graft(s) without angina pectoris; R13.10 Dysphagia, unspecified; M06.9 Rheumatoid arthritis, unspecified; T38.0X5A Adverse effect of glucocorticoids and synthetic analogues, initial encounter; I48.2 Chronic atrial fibrillation; J98.01 Acute bronchospasm; I35.1 Nonrheumatic aortic (valve) insufficiency; F02.80 Dementia in other diseases classified elsewhere, unspecified severity, without behavioral disturbance, psychotic disturbance, mood disturbance, and anxiety; E78.5 Hyperlipidemia, unspecified; I71.2 Thoracic aortic aneurysm, without rupture; F41.9 Anxiety disorder, unspecified; F32.9 Major depressive disorder, single episode, unspecified; Z87.442 Personal history of urinary calculi; Z88.8 Allergy status to other drugs, medicaments and biological substances; Z95.1 Presence of aortocoronary bypass graft; Z79.899 Other long term (current) drug therapy; Z95.5 Presence of coronary angioplasty implant and graft; Z87.19 Personal history of other diseases of the digestive system; Z87.448 Personal history of other diseases of urinary system; Z85.820 Personal history of malignant melanoma of skin; Z85.46 Personal history of malignant neoplasm of prostate; Z85.828 Personal history of other malignant neoplasm of skin; Z91.81 History of falling; Z98.42 Cataract extraction status, left eye; Z98.41 Cataract extraction status, right eye; Z90.49 Acquired absence of other specified parts of digestive tract; Z79.01 Long term (current) use of anticoagulants; Z79.82 Long term (current) use of aspirin; Z79.52 Long term (current) use of systemic steroids; Z79.84 Long term (current) use of oral hypoglycemic drugs; Z95.828 Presence of other vascular implants and grafts
CPT/HCPCS: 71020; 80048; 80053; 83036; 83735; 84100; 85025; 85027; 85610; 85730; 93306; 94640

== ENCOUNTER → 2017-03-11 | Outpatient (CLI) | payer MEDICARE ==
--- NOTE | 2017-03-11 15:07 | MR ---
EXAMINATION TYPE: MR cervical spine wo con DATE OF EXAM: 03/11/2017 COMPARISON: NONE HISTORY: Pain, Disc Degeneration TECHNIQUE: Multiplanar, multisequence images of the cervical spine were acquired. C2-C3: Central disc bulge is present with mild anterior thecal sac compression. No AP spinal canal st enosis present. Some right foraminal narrowing is present. C3-C4: Broad-based disc bulge is present with moderate anterior thecal sac compression. This may be c ord contact. Cord deformity is not identified. No AP spinal canal stenosis present. Neural foramen ar e patent. C4-C5: Central focal bulge is present. This appears broad with moderate anterior thecal sac compressi on. Cord contact is evident. Cord flattening is present. No AP spinal canal stenosis present. Neural foramen are patent. C5-C6: Mild disc bulge is present with mild anterior thecal sac compression. No AP spinal canal steno sis is present. Mild right foraminal narrowing is present. C6-C7: Small central protrusion is present with mild anterior thecal sac compression. No cord contact is evident. No spinal canal stenosis is present. C7-T1: Disc uncovering is present with mild anterior thecal sac flattening. No AP spinal canal stenos is present. Neural foramen are patent. Vertebral body heights appear preserved. There is loss of disc height C4-5. Disc desiccation is prese nt. Mild anterolisthesis of C2 on C3 and C3 on C4 may be present. Posterior endplate spurring is pres ent at the inferior endplate of C4. Anterior vertebral body spurring is present C4-5 C5-6. Mild anter olisthesis of C7 on T1 may be present. IMPRESSION: 1. Straightening of the cervical spine with some mild spondylolisthesis discussed above. 2. Multilevel disc bulges and disc uncovering with anterior thecal sac compression. 3. Some focal disc bulge is present with cord contact at C4-5 appears to be causing some cord flatten ing. Spinal canal stenosis is not present.
== END | disposition home or self-care (01) ==
LOC: RADMRIMAIN 14:30
PROVIDERS: ATTEND Internal Medicine Rheumatology
DX: M50.21 Other cervical disc displacement, high cervical region (principal); M43.12 Spondylolisthesis, cervical region
CPT/HCPCS: 72141

== ENCOUNTER → 2017-04-02 | Outpatient (CLI) | payer MEDICARE ==
--- NOTE | 2017-04-02 12:34 | MR ---
EXAMINATION TYPE: MR lumbar spine wo con DATE OF EXAM: 04/02/2017 COMPARISON: Outside CTA chest February 17, 2017 HISTORY: Lower back and left hip pain TECHNIQUE: Multiplanar, multisequence imaging of the lumbar spine is performed without IV contrast. FINDINGS: Survey images shows slight dextroconvex scoliosis centered in the mid lumbar spine. Sagitta l images of the lumbar spine show vertebral body heights to appear satisfactory. There is multilevel disc desiccation seen. There is moderate to advanced disc space narrowing L2-L3, L3-L4, and L4-L5 lev els. Posterior disc herniations are seen at these levels effacing anterior thecal sac on sagittal bear ges. The conus medullaris is normal in position and signal ending at T12-L1 disc space level. The bridget ne marrow signal intensity is overall heterogeneous with some endplate changes centered at the L2-L3 disc space identified. Axial images beginning at labeled T12-L1 level which is felt within normal limits. Axial images at the L1-L2 level show mild broad disc bulge and slight spondylolisthesis. Spinal canal is preserved and bilateral neural foramina are patent. Axial images at the L2-L3 level show mild facet degenerative changes and ligamentum flavum hypertroph y effacing the posterior lateral thecal sac. There is moderate broad-based posterior disc protrusion with slightly more prominent left foraminal component mildly effacing anterior thecal sac. There is m ild to moderate bilateral anterior inferior neural foraminal narrowing. Right-sided neural foramen is patent. Axial images at the L3-L4 level show mild to moderate facet degenerative changes and ligamentum flavu m hypertrophy effacing posterior lateral thecal sac. There is moderate broad disc bulge effacing the anterior thecal sac. There is mild to moderate right greater than left neural foraminal narrowing see n. Axial images at the L4-L5 level show moderate broad disc bulge with central disc protrusion component effacing anterior thecal sac. There is mild facet degenerative changes seen bilaterally. There is mo derate right and mild/moderate left-sided neural foraminal narrowing at this level identified. There appears to be some linear increased signal in the exiting L4 nerve seen on axial image 10 and sagitta l image 2. Etiology uncertain, partial tear or cleft needs to be considered. Axial images at the L5-S1 level show mild to moderate facet degenerative changes bilaterally. There i s no significant disc herniation or spinal canal effacement. Bilateral neural foramina are patent. There is ectatic course with aneurysmal change to the upper aorta near diaphragm. Because of ectatic course size of aneurysm is difficult to measure measures roughly 4.5 cm AP diameter on axial image 38 , I get similar measurement on recent outside CTA study February 17, 2017. IMPRESSION: Multilevel degenerative changes in the lumbar spine most prominent at labeled L2-L3 throu gh L4-L5 levels as detailed above. Partial visualization of known large aortic aneurysm felt stable.
== END | disposition home or self-care (01) ==
LOC: RADMRIMAIN 10:33
PROVIDERS: ATTEND Internal Medicine Rheumatology
DX: M47.816 Spondylosis without myelopathy or radiculopathy, lumbar region (principal)
CPT/HCPCS: 72148

== ENCOUNTER 2017-07-04 21:13 | Inpatient (IN) | payer MEDICARE ==
[2017-07-04] MEDS ORDERED: HEPARIN SODIUM,PORCINE 5,000 UNIT/ML 1 ML VIAL IV PRN (23:53)
[2017-07-05] MEDS: HEPARIN SODIUM,PORCINE/D5W PMX 25,000 UNIT in DEXTROSE/WATER 1 500ML.BAG IV SCH ×2 (00:09→21:14)
[2017-07-05] MEDS: SODIUM CHLORIDE 0.9% 1,000 ML IV SCH ×3 (00:17→21:13)
[2017-07-05 00:36] VITALS: BMI 24.3
[2017-07-05 01:02] LABS: Basophils % (A) 1 %; CH 33.3; CHCM 31.5; Eosinophils # (A) 0.1 k/uL (0-0.7); Eosinophils % (A) 1 %; HCT 42.1 % (39.0-53.0); HDW 2.56; HGB 12.9 gm/dL (13.0-17.5); Luc # (Auto) 0.15; Luc % (Auto) 4; Lymphocytes # (A) 0.7 k/uL (1.0-4.8); Lymphocytes % (A) 18 %; MCH 32.6 pg (25.0-35.0); MCHC 30.7 g/dL (31.0-37.0); MCV 106.2 fL (80.0-100.0); Macrocytosis Moderate; Mean Platelet Volume 8.1; Monocytes # (A) 0.5 k/uL (0-1.0); Monocytes % (A) 12 %; Neutrophils # (A) 2.5 k/uL (1.3-7.7); Neutrophils % (A) 64 %; RBC 3.97 m/uL (4.30-5.90); RDW 14.6 % (11.5-15.5); WBC 3.9 k/uL (3.8-10.6); WBC (Perox) 3.97
[2017-07-05] MEDS: traZODone HCL 50 MG TAB PO SCH ×2 (01:16→21:13)
[2017-07-05 01:25] LABS: INR 1.2 (<1.2); Partial Thromboplastin Time 42.9 sec (22.0-30.0); Prothrombin Time 12.2 sec (9.0-12.0)
[2017-07-05 06:07] LABS: Glucose,Whole Blood 147 mg/dL (75-99)
[2017-07-05] MEDS: INSULIN ASPART 100 UNIT/ML 1 ML 10 ML VIAL SQ SCH ×4 (06:36→21:13)
[2017-07-05 08:10] LABS: Basophils % (A) 1 %; CH 33.5; CHCM 31.4; Eosinophils # (A) 0.1 k/uL (0-0.7); Eosinophils % (A) 2 %; HCT 39.5 % (39.0-53.0); HDW 2.59; HGB 12.4 gm/dL (13.0-17.5); Hypochromasia Slight; Luc # (Auto) 0.06; Luc % (Auto) 2; Lymphocytes # (A) 0.5 k/uL (1.0-4.8); Lymphocytes % (A) 13 %; MCH 33.8 pg (25.0-35.0); MCHC 31.5 g/dL (31.0-37.0); MCV 107.3 fL (80.0-100.0); Macrocytosis Moderate; Mean Platelet Volume 8.7; Monocytes # (A) 0.3 k/uL (0-1.0); Monocytes % (A) 7 %; Neutrophils # (A) 2.9 k/uL (1.3-7.7); Neutrophils % (A) 76 %; RBC 3.68 m/uL (4.30-5.90); RDW 14.6 % (11.5-15.5); WBC 3.8 k/uL (3.8-10.6); WBC (Perox) 3.84
[2017-07-05 08:47] LABS: Anion Gap 8 mmol/L; Blood Urea Nitrogen 26 mg/dL (9-20); Calcium 8.9 mg/dL (8.4-10.2); Carbon Dioxide 24 mmol/L (22-30); Chloride 104 mmol/L (98-107); Glucose 225 mg/dL (74-99); Non-African American GFR(MDRD) >60 (>60 ml/min/1.73 sqM); Potassium 4.2 mmol/L (3.5-5.1); Sodium 136 mmol/L (137-145)
[2017-07-05 12:03] LABS: Glucose,Whole Blood 261 mg/dL (75-99)
[2017-07-05] MEDS ORDERED: ALBUTEROL NEBULIZED 2.5 MG/3 ML INHALATION PRN (15:47)
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
[2017-07-05] MEDS: CARBIDOPA-LEVODOPA 25-100 MG 1 EACH TAB PO SCH ×2 (16:46→21:13)
[2017-07-05 16:51] LABS: Glucose,Whole Blood 96 mg/dL (75-99)
[2017-07-05] MEDS ORDERED: WARFARIN 2 MG TAB PO SCH (18:00)
--- NOTE | 2017-07-05 19:47 | P.CNNES ---
History of Present Illness Consult date: 07/05/17 History of Present Illness: The patient is a 72-year-old left-handed white male with history of multiple medical problems who presented to [facility] with general weakness and shortness of breath. He states that on Wednesday he woke up feeling tired and for the rest of the deep day he had been generally weak. He was transferred from [facility] to [facility]. He was admitted with a diagnosis of generalized weakness and confusion and possible dehydration. Neurology was requested to see the patient to evaluate to rule out stroke. The patient had a CT of the brain which was negative for infarct. Patient denied any focal weakness or numbness or visual complaint or loss of speech. He does have a history of previous stroke TIA. His other medical conditions include A. fib cancer dementia diabetes hypertension Parkinson's arthritis and skin cancer prostate cancer Review of Systems Eyes: denies blurred vision, denies pain Cardiovascular: Denies chest pain, Denies shortness of breath Respiratory: Denies cough Musculoskeletal: Denies myalgias Neurological: Denies numbness, Denies weakness Psychiatric: Denies anxiety, Denies depression Endocrine: Denies fatigue, Denies weight change Past Medical History Past Medical History: Atrial Fibrillation, Cancer, Heart Failure, Dementia, Diabetes Mellitus, GI Bleed, Hyperlipidemia, Hypertension, Memory Impairment, Neurologic Disorder, Prostate Disorder, Renal Disease, Rheumatoid Arthritis (RA) Additional Past Medical History / Comment(s): Coronary artery disease, previous coronary artery bypass surgery, thoracic aortic aneurysm status post endovascular stent grafting, chronic atrial fibrillation, skin cancer, congestion heart failure, dementia, Parkinson's disease, diabetes mellitus, previous history of GI bleeds, hyperlipidemia, hypertension, prostate cancer, rheumatoid arthritis, 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, nephrolithiasis, a chronic loculated right basilar fluid collection present since June 2016 History of Any Multi-Drug Resistant Organisms: None Reported Past Surgical History: Appendectomy, Cholecystectomy, Coronary Bypass/CABG, Hernia Repair, Orthopedic Surgery Additional Past Surgical History / Comment(s): Left knee surgery, hernia repair involving inguinal hernias, appendectomy, removal of kidney stones, coronary artery bypass surgeries was done 2009, cholecystectomy, cataract surgery in 2014 , eyelid surgery 2015, carotid to subclavian artery bypass surgery, placement of a descending thoracic aortic aneurysm endovascular stent, blepharoplasty Past Anesthesia/Blood Transfusion Reactions: No Reported Reaction Past Psychological History: Anxiety, Depression Smoking Status: Never smoker Past Alcohol Use History: None Reported Past Drug Use History: None Reported - Past Family History Mother Family Medical History: No Reported History Father Family Medical History: No Reported History Medications and Allergies Home Medications Medication Instructions Recorded Confirmed Type Multivitamin [Men's Multi-Vitamin] 1 tab PO DAILY 03/29/14 07/05/17 History Simvastatin [Zocor] 40 mg PO HS 04/27/14 07/05/17 History Spironolactone 12.5 mg PO DAILY 04/10/15 07/05/17 History Escitalopram [Lexapro] 20 mg PO DAILY 05/07/15 07/05/17 History Aspirin EC [Ecotrin Low Dose] 81 mg PO HS 06/01/16 07/05/17 History Furosemide [Lasix] 20 mg PO DAILY PRN 06/01/16 07/05/17 History Primidone [Mysoline] 50 mg PO TID 06/01/16 02/18/17 History traZODone HCL 50 mg PO HS 06/01/16 07/05/17 History Albuterol Sulfate [Ventolin HFA] 1 puff INHALATION RT-TID PRN 02/18/17 07/05/17 History Carbidopa-Levodopa 25-100 mg 1 tab PO TID 02/18/17 07/05/17 History [Sinemet 25-100 mg] Diltiazem HCl [Diltiazem 24Hr ER] 240 mg PO DAILY 02/18/17 07/05/17 History Propranolol [Inderal] 20 mg PO BID 02/18/17 07/05/17 History metFORMIN HCL [Glucophage] 1,000 mg PO BID #30 02/21/17 07/05/17 Rx Budesonide-Formot 160-4.5 Mcg 2 puff INHALATION RT-BID 07/05/17 07/05/17 History [Symbicort 160-4.5 Mcg Inhaler] Memantine [Namenda] 10 mg PO BID 07/05/17 07/05/17 History Warfarin Sodium [Coumadin] 4 mg PO DAILY@1700 07/05/17 07/05/17 History Allergies Allergy/AdvReac Type Severity Reaction Status Date / Time nitroglycerin AdvReac EXTREME Verified 07/05/17 08:29 DROP IN BP Physical Examination - Vital Signs Vital Signs: Vital Signs Temp Pulse Resp BP Pulse Ox 07/05/17 15:10 98.8 F 77 18 131/75 95 07/05/17 15:09 80 16 07/05/17 11:36 98.3 F 80 16 123/70 94 L 07/05/17 08:00 98.0 F 79 18 99/61 95 07/05/17 04:00 97.0 F L 71 18 130/76 97 07/04/17 23:16 98.6 F 67 18 117/60 97 07/04/17 20:55 67 18 Intake and Output 07/05/17 07/05/17 07/05/17 06:59 14:59 22:59 Intake Total 740.04 638.703 438.895 Output Total 475 250 Balance 265.04 388.703 438.895 Intake: Intake, IV Titration 740.04 438.703 202.895 Amount Heparin Sodium,Porcine/ 40.04 138.703 202.895 D5w Pmx 25,000 unit In Dextrose/Water 1 500ml. bag @ 12 UNITS/KG/HR 18. 48 mls/hr IV .Q24H MELL Rx #:[id number] Sodium Chloride 0.9% 1, 700 300 000 ml @ 100 mls/hr IV . Q10H MELL Rx#:[id number] Oral 200 236 Output: Urine 475 250 Other: Voiding Method Urinal Urinal Urinal Diaper Diaper Diaper # Voids 1 Weight 77 kg - Constitutional General appearance: cooperative - EENT EENT: PERRL - Respiratory Respiratory: lungs clear - Cardiovascular Cardiovascular: regular rate, normal S1, normal S2 - Integumentary Integumentary: normal - Neurologic Mental status he was awake alert and oriented 2 was no a aphasia or dysarthria Cranial nerve examination: PERRL, EOMI, VFF, face symmetric, tongue midline Speech examination: intact Detailed motor examination: grossly full strength in all extremities Reflex and gait examination: intact - Psychiatric Psychiatric: mood/affect appropriate Results - Laboratory Findings CBC and BMP: 07/05/17 07:59 07/05/17 07:59 Abnormal Lab Findings: Abnormal Labs 07/05/17 07/05/17 07/05/17 00:14 00:14 06:02 RBC 3.97 L Hgb 12.9 L MCV 106.2 H MCHC 30.7 L Plt Count 110 L Lymphocytes # 0.7 L PT 12.2 H INR 1.2 H APTT 42.9 H Sodium BUN Glucose POC Glucose (mg/dL) 147 H 07/05/17 07/05/17 07/05/17 07:59 07:59 07:59 RBC 3.68 L Hgb 12.4 L MCV 107.3 H MCHC Plt Count 103 L Lymphocytes # 0.5 L PT INR APTT 39.1 H Sodium 136 L BUN 26 H Glucose 225 H POC Glucose (mg/dL) 07/05/17 07/05/17 11:47 15:48 RBC Hgb MCV MCHC Plt Count Lymphocytes # PT INR APTT 40.5 H Sodium BUN Glucose POC Glucose (mg/dL) 261 H Assessment and Plan (1) Generalized weakness Current Visit: Yes Status: Acute SNOMED Code(s): 39763405 (2) Dementia Current Visit: Yes Status: Chronic SNOMED Code(s): 18879237 (3) Parkinsons disease Current Visit: Yes Status: Chronic SNOMED Code(s): 84443740 Plan: The patient is a 72-year-old man who was brought to the hospital from [facility] for evaluation of general weakness. He has a history of Parkinson' s disease and dementia. He also has multiple medical problems including renal insufficiency atrial fibrillation hypertension and diabetes. His main complaint is exertional dyspnea he has no complaint of focal deficits such as focal weakness or numbness. His been getting some epidural injections apparently for which she has been off of Coumadin. As had a CAT scan of the brain which did not show any acute abnormality. Recommend PT OT evaluation. We 'll also check carotid ultrasound echocardiogram and EEG
[2017-07-05 20:54] LABS: Glucose,Whole Blood 181 mg/dL (75-99)
[2017-07-05] MEDS ORDERED: traZODone HCL 50 MG TAB PO SCH (21:00)
[2017-07-05] MEDS ORDERED: ASPIRIN 81 MG PO SCH (21:00)
[2017-07-05] MEDS: SYMBICORT 160-4.5 MCG INHALER INHALATION SCH (21:00)
[2017-07-05] MEDS: metFORMIN 500 MG TAB PO SCH (21:13)
[2017-07-05] MEDS: MEMANTINE 10 MG TAB PO SCH (21:13)
--- NOTE | 2017-07-05 21:19 | US ---
EXAMINATION TYPE: US carotid duplex BILAT DATE OF EXAM: 07/05/2017 COMPARISON: NONE CLINICAL HISTORY: TIA/confusion. dizziness EXAM MEASUREMENTS: RIGHT: Peak Systolic Velocity (PSV) cm/sec ----- Right CCA: 68.2 ----- Right ICA: 108.9 ----- Right ECA: 103.1 ICA/CCA ratio: 1.6 RIGHT: End Diastole cm/sec ----- Right CCA: 14.4 ----- Right ICA: 20.2 ----- Right ECA: 14.4 LEFT: Peak Systolic Velocity (PSV) cm/sec ----- Left CCA: 88.5 ----- Left ICA: 75.8 ----- Left ECA: 64.4 ICA/CCA ratio: 0.9 LEFT: End Diastole cm/sec ----- Left CCA: 18.8 ----- Left ICA: 22.5 ----- Left ECA: 20.8 VERTEBRALS (direction of flow): Right Vertebral: Antegrade Left Vertebral: Antegrade Rhythm: Arrhythmia Limited exam due to torturous vessels and high bifurcation No significant stenosis seen Patient states had surgery left neck surgery a stent placement IMPRESSION: There is antegrade flow in the vertebral arteries. The images and measurements suggest c lose to 0% stenosis in the left internal carotid artery and 25% stenosis in the right internal caroti d artery. Criteria for Assigning % of Stenosis / Diameter reduction (Estimation based on the indirect measurements of the internal carotid artery velocities (ICA PSV). 1. Normal (no stenosis)=ICA PSV < 125 cm/s: ratio < 2.0: ICA EDV<40 cm/s. 2. Less than 50% stenosis=ICA PSV < 125 cm/s: ratio < 2.0: ICA EDV<40 cm/s. 3. 50 to 69% stenosis=ICA PSV of 125 to 230 cm/s: ration 2.0 ? 4.0: ICA EDV 40-100 cm/s. 4. Greater than 70% stenosis to near occlusion= ICA PSV > 230 cm/s: ratio > 4.0: ICA EDV > 100 cm/s. 5. Near occlusion= ICA PSV velocities may be low or undetectable: variable ratio and ICA EDV. 6. Total occlusion=unable to detect flow.
[2017-07-05 23:26] VITALS: RESP 16
[2017-07-06 04:17] LABS: Basophils % (A) 1 %; CH 33.8; CHCM 31.7; Eosinophils # (A) 0.2 k/uL (0-0.7); Eosinophils % (A) 4 %; HCT 38.1 % (39.0-53.0); HDW 2.58; HGB 11.9 gm/dL (13.0-17.5); Luc # (Auto) 0.15; Luc % (Auto) 4; Lymphocytes # (A) 0.9 k/uL (1.0-4.8); Lymphocytes % (A) 24 %; MCH 33.6 pg (25.0-35.0); MCHC 31.2 g/dL (31.0-37.0); MCV 107.4 fL (80.0-100.0); Macrocytosis Moderate; Mean Platelet Volume 8.7; Monocytes # (A) 0.4 k/uL (0-1.0); Monocytes % (A) 11 %; Neutrophils # (A) 2.1 k/uL (1.3-7.7); Neutrophils % (A) 57 %; RBC 3.54 m/uL (4.30-5.90); RDW 14.9 % (11.5-15.5); WBC 3.7 k/uL (3.8-10.6); WBC (Perox) 3.86
[2017-07-06 05:12] LABS: Anion Gap 6 mmol/L; Blood Urea Nitrogen 20 mg/dL (9-20); Carbon Dioxide 25 mmol/L (22-30); Chloride 105 mmol/L (98-107); Glucose 122 mg/dL (74-99); Non-African American GFR(MDRD) >60 (>60 ml/min/1.73 sqM); Potassium 4.4 mmol/L (3.5-5.1); Sodium 136 mmol/L (137-145)
[2017-07-06 06:22] LABS: Glucose,Whole Blood 152 mg/dL (75-99)
[2017-07-06] MEDS: INSULIN ASPART 100 UNIT/ML 1 ML 10 ML VIAL SQ SCH ×2 (06:46→12:36)
[2017-07-06] MEDS: SYMBICORT 160-4.5 MCG INHALER INHALATION SCH (07:31)
[2017-07-06] MEDS: metFORMIN 500 MG TAB PO SCH (07:52)
[2017-07-06] MEDS: CARBIDOPA-LEVODOPA 25-100 MG 1 EACH TAB PO SCH (07:53)
[2017-07-06] MEDS: MEMANTINE 10 MG TAB PO SCH (07:53)
[2017-07-06] MEDS ORDERED: ESCITALOPRAM 20 MG TAB PO SCH (09:00)
[2017-07-06] MEDS ORDERED: DILTIAZEM CD 240 MG CAP.ER.24H PO SCH (09:00)
[2017-07-06 09:23] LABS: INR 1.2 (<1.2); Prothrombin Time 12.2 sec (9.0-12.0)
[2017-07-06 11:30] VITALS: BP 96/56; PULSE 87; TEMP 97
--- NOTE | 2017-07-06 11:46 | ECHOF ---
Referral Reason:TIA/confusion MEASUREMENTS -------- HEIGHT: 152.4 cm WEIGHT: 77.6 kg BP: 121/73 IVSd: 1.5 cm (0.6 - 1.1) LVIDd: 4.7 cm (3.9 - 5.3) LVPWd: 1.4 cm (0.6 - 1.1) IVSs: 1.9 cm LVIDs: 3.6 cm LVPWs: 1.3 cm LAESV Index (A-L): 81.73 ml/m Ao Diam: 5.6 cm (2.0 - 3.7) AV Cusp: 1.9 cm (1.5 - 2.6) LA Diam: 3.5 cm (2.7 - 3.8) MV EXCURSION: 24.295 mm (> 18.000) MV EF SLOPE: 87 mm/s (70 - 150) EPSS: 0.9 cm MV E Jelani: 0.59 m/s MV DecT: 136 ms MV A Jelani: 0.23 m/s MV E/A Ratio: 2.53 AR PHT: 438 ms FINDINGS -------- Atrial fibrillation. This was a technically adequate study. The left ventricular size is normal. There is moderate concentric left ventricular hypertrophy. O verall left ventricular systolic function is low-normal with, an EF between 50 - 55 %. The right ventricle is normal in size. LA is severely dilated >40 ml/m2 The right atrial size is normal. There is mild aortic valve sclerosis. There is mild aortic regurgitation. Mild mitral annular calcification present. Mild mitral regurgitation is present. Mild tricuspid regurgitation present. There is no evidence of pulmonary hypertension. The right v entricular systolic pressure, as measured by Doppler, is {RVSP}. Trace/mild (physiologic) pulmonic regurgitation. Aortic Root is Moderately Dilated and measures 5.6cm. There is no pericardial effusion. CONCLUSIONS -------- 1. The left ventricular size is normal. 2. There is moderate concentric left ventricular hypertrophy. 3. Overall left ventricular systolic function is low-normal with, an EF between 50 - 55 %. 4. LA is severely dilated >40 ml/m2 5. There is mild aortic valve sclerosis. 6. There is mild aortic regurgitation. 7. Mild mitral annular calcification present. 8. Mild mitral regurgitation is present. 9. Mild tricuspid regurgitation present. 10. There is no evidence of pulmonary hypertension. 11. The right ventricular systolic pressure, as measured by Doppler, is {RVSP}. 12. Trace/mild (physiologic) pulmonic regurgitation. 13. Aortic Root is Moderately Dilated and measures 5.6cm. 14. There is no pericardial effusion. [employer] CONSULTANT: Elizabeth Crenshaw RDCS
[2017-07-06] MEDS ORDERED: MULTIVITAMINS, THERA 1 EACH TAB PO SCH (12:00)
[2017-07-06 12:56] LABS: Glucose,Whole Blood 155 mg/dL (75-99)
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
== END 2017-07-06 13:10 | disposition home health service (06) | DRG 684 ==
LOC: 6SEL 23:06
PROVIDERS: ADMIT Hospitalist; ATTEND Hospitalist
DX: N17.9 Acute kidney failure, unspecified (principal); I48.2 Chronic atrial fibrillation; E11.65 Type 2 diabetes mellitus with hyperglycemia; I11.0 Hypertensive heart disease with heart failure; G20 Parkinson's disease; I50.9 Heart failure, unspecified; I71.2 Thoracic aortic aneurysm, without rupture; F02.80 Dementia in other diseases classified elsewhere, unspecified severity, without behavioral disturbance, psychotic disturbance, mood disturbance, and anxiety; E86.0 Dehydration; E78.5 Hyperlipidemia, unspecified; F32.9 Major depressive disorder, single episode, unspecified; F41.9 Anxiety disorder, unspecified; I25.10 Atherosclerotic heart disease of native coronary artery without angina pectoris; M06.9 Rheumatoid arthritis, unspecified; M19.90 Unspecified osteoarthritis, unspecified site; G89.29 Other chronic pain; N42.9 Disorder of prostate, unspecified; R07.9 Chest pain, unspecified; M54.9 Dorsalgia, unspecified; Z79.84 Long term (current) use of oral hypoglycemic drugs; Z79.01 Long term (current) use of anticoagulants; Z79.51 Long term (current) use of inhaled steroids; Z79.899 Other long term (current) drug therapy; Z79.82 Long term (current) use of aspirin; Z85.46 Personal history of malignant neoplasm of prostate; Z85.828 Personal history of other malignant neoplasm of skin; Z95.1 Presence of aortocoronary bypass graft; Z88.8 Allergy status to other drugs, medicaments and biological substances
CPT/HCPCS: 80048; 82553; 82607; 82747; 83036; 84443; 85025; 85610; 85730; 93306; 93880; 94640

== ENCOUNTER → 2018-01-25 | Outpatient (CLI) | payer MEDICARE ==
--- NOTE | 2018-01-25 14:06 | CT ---
EXAMINATION TYPE: CT chest w con DATE OF EXAM: 01/25/2018 COMPARISON: NONE HISTORY: Rt lower lobe mass CT DLP: 316.5 mGycm, Automated exposure control for dose reduction was used. CONTRAST: Performed injected with 100 mL of Isovue 300. TECHNIQUE: Axial images were obtained at 5 mm thick sections. Reconstructed images are reviewed on Spoke computer in the coronal plane. FINDINGS: Portion of the thyroid visualized is normal. There is a dense rounded area at the right lung base. Margins appear smooth. Some internal vascular s tructures are evident. This measures 30-40 Hounsfield units and measures approximately 12.7 x 7.3 x 7 .8 cm in size. The bilateral pleural thickening posteriorly which is very low density and may be subpleural fat. No enlarged mediastinal or hilar adenopathy is evident. The ascending aorta diameter at the level o f the main pulmonary artery is 4.2 cm. The main pulmonary artery diameter at the bifurcation is 3.6 cm. There is prominence at the distal aortic arch with a transverse diameter of 5.4 cm stent is prese nt within the descending thoracic aortic aneurysm and extends to just above the diaphragm. AP dimensi on within the midportion is 5.8 cm. At the diaphragm this measures 4.9 cm. Within the proximal abdomi nal aorta transverse dimension is 3.[address] sections are obtained through the upper abdomen. Note is made of bilateral nonobstructing punctate round renal stones within the upper poles visualized measuring approximately 0.3 to 0.4 cm e ach. Gallbladder is been surgically removed. Liver and spleen appear unremarkable. IMPRESSIONS: 1. Mass at the posterior lateral right lung base appears solid. Additional workup is recommended. 2. Descending thoracic aortic aneurysm repair. 3. Nonobstructing bilateral punctate renal stones.
== END | disposition home or self-care (01) ==
LOC: RADCTMAIN 08:04
PROVIDERS: ATTEND Internal Medicine Critical Care Medicine
DX: I71.2 Thoracic aortic aneurysm, without rupture (principal); R91.8 Other nonspecific abnormal finding of lung field
CPT/HCPCS: 82565; 84520; 71260; 36415; Q9967